=== PATIENT | male | born 1970 | race Caucasian/White ===

== ENCOUNTER 2016-08-20 14:37 | Emergency (ER) | payer SELFPAY ==
[~2016-08-20] VITALS: Ht 185.4 cm; Wt 90.7 kg
[2016-08-20 19:05] VITALS: BP 143/107
== END 2016-08-20 19:33 | disposition home or self-care (01) ==
LOC: ER 14:44
DX: K40.90 Unilateral inguinal hernia, without obstruction or gangrene, not specified as recurrent (principal); N28.89 Other specified disorders of kidney and ureter
CPT/HCPCS: 74176

== ENCOUNTER 2023-11-07 08:38 | Inpatient (IN) | payer MEDICAID ==
[~2023-11-07] VITALS: Ht 182.9 cm; Wt 104.0 kg
[2023-11-07 09:28] VITALS: PULSE 99; RESP 16; O2SAT 99
[2023-11-07 09:32] LABS: Basophils # (auto) 0 10 ^3/uL (0-0.2); Basophils % (auto) 0.2 % (0.0-2.0); Eosinophils # (auto) 0 10 ^3/uL (0-0.8); Hematocrit 46.4 % (41.0-53.0); Hemoglobin 15.9 g/dL (13.5-17.5); Lymphocytes # (auto) 0.4 10 ^3/uL (0.4-5.4); Lymphocytes % (auto) 2.9 % (10.0-50.0); Mean Corpuscular Hemoglobin 30.8 pg (28.0-32.0); Mean Corpuscular Hgb Conc. 34.3 g/dL (32.0-36.0); Mean Corpuscular Volume 89.9 fL (80.0-100.0); Monocytes # (auto) 0.5 10 ^3/uL (0-1.3); Monocytes % (auto) 3.4 % (0.0-12.0); Neutrophils # (auto) 14.2 10 ^3/uL (1.6-8.6); Neutrophils % (auto) 93.5 % (37.0-80.0); Nucleated Red Blood Cells % 0.1 %; Platelet Count (auto) 248 10^3/uL (140-450); Red Blood Cells 5.16 10^6/uL (4.5-5.90); Red Cell Distribution Width 13.6 % (11.8-14.3); White Blood Cell 15.1 10^3/uL (4.4-10.8)
[2023-11-07 09:44] LABS: Chloride 106 mmol/L (98-107); Potassium 4.1 mmol/L (3.5-5.1); Sodium 136 mmol/L (136-145)
[2023-11-07 09:45] LABS: Anion Gap 0 (5-15); Carbon Dioxide 30 mmol/L (20-30)
[2023-11-07 09:46] LABS: Calcium 10.6 mg/dL (8.7-10.4)
[2023-11-07] MEDS: SODIUM CHLORIDE 0.9% 1,000 ML IVB ONE (09:47)
[2023-11-07] MEDS: ONDANSETRON HCL 4 MG/2 ML VIAL IV ONE (09:50)
[2023-11-07 09:51] LABS: BUN/Creatinine Ratio 7.6 (10.0-20.0); Blood Urea Nitrogen 10 mg/dL (9-23); Glucose 121 mg/dL (74-106)
[2023-11-07] MEDS: KETOROLAC TROMETH 30 MG/ML 1ML VIAL IV ONE (09:51)
[2023-11-07] MEDS ORDERED: ONDANSETRON HCL 4 MG/2 ML VIAL IV PRN (11:30)
[2023-11-07] MEDS ORDERED: ACETAMINOPHEN 325 MG TAB PO PRN (11:30)
[2023-11-07] MEDS: SODIUM CHLORIDE 0.9% 1,000 ML IV SCH (11:46)
[2023-11-07] MEDS: TAMSULOSIN HYDROCHLORIDE 0.4 MG CAP PO ONE (11:47)
[2023-11-07] MEDS: cefTRIAXone 1GM/50ML D5W 50 ML IV ONE (11:47)
[2023-11-07 11:57] LABS: Urine Bacteria FEW /hpf (None Seen); Urine Blood Negative /uL (Negative); Urine Clarity Turbid (Clear); Urine Color Yellow (Yellow); Urine Mucus FEW (None Seen); Urine Protein, UAD TRACE (Negative); Urine Specific Gravity 1.025 (1.001-1.035); Urine Urobilinogen Normal (Negative); Urine WBC 55 /hpf (0 - 3); Urine pH 6.5 (5.0-9.0)
[2023-11-07] MEDS: NICOTINE 7MG/24HR TOPICAL PATCH TD ONE (12:11)
[2023-11-07] MEDS: TAMSULOSIN HYDROCHLORIDE 0.4 MG CAP PO SCH (18:38)
[2023-11-07 20:30] VITALS: PULSE 101; RESP 18; O2SAT 96
[2023-11-07 21:00] VITALS: BP 106/68; PULSE 114; PULSE 126; RESP 18; TEMP 99.7; O2SAT 93
[2023-11-08] VITALS (7 sets, daily range): BP systolic 97–110; BP diastolic 49–65; PULSE 68–108; RESP 17–19; TEMP 98–98.9; O2SAT 94–98
[2023-11-08] MEDS: MORPHINE SULFATE INJ 2 MG/ml SYRG IV PRN (04:10)
[2023-11-08 06:04] LABS: Basophils # (auto) 0.1 10 ^3/uL (0-0.2); Basophils % (auto) 0.3 % (0.0-2.0); Eosinophils # (auto) 0.1 10 ^3/uL (0-0.8); Eosinophils % (auto) 0.5 % (0.0-7.0); Hematocrit 39.9 % (41.0-53.0); Hemoglobin 13.7 g/dL (13.5-17.5); Lymphocytes # (auto) 0.8 10 ^3/uL (0.4-5.4); Mean Corpuscular Hemoglobin 30.8 pg (28.0-32.0); Mean Corpuscular Hgb Conc. 34.4 g/dL (32.0-36.0); Mean Corpuscular Volume 89.5 fL (80.0-100.0); Monocytes # (auto) 1.3 10 ^3/uL (0-1.3); Monocytes % (auto) 6.5 % (0.0-12.0); Neutrophils # (auto) 17.4 10 ^3/uL (1.6-8.6); Neutrophils % (auto) 88.7 % (37.0-80.0); Platelet Count (auto) 184 10^3/uL (140-450); Red Blood Cells 4.45 10^6/uL (4.5-5.90); Red Cell Distribution Width 13.2 % (11.8-14.3); White Blood Cell 19.7 10^3/uL (4.4-10.8)
[2023-11-08 06:27] LABS: Alanine Aminotransferase 10 U/L (7-40); Albumin 3.4 g/dL (3.2-4.8); Alkaline Phosphatase 104 U/L (46-116); Anion Gap 1 (5-15); Aspartate Aminotransferase 13 U/L (13-40); Bilirubin, Total 1.7 mg/dL (0.2-1.0); Blood Urea Nitrogen 15 mg/dL (9-23); Calcium 9.7 mg/dL (8.7-10.4); Carbon Dioxide 27 mmol/L (20-30); Chloride 106 mmol/L (98-107); Glucose 101 mg/dL (74-106); Potassium 4.4 mmol/L (3.5-5.1); Sodium 134 mmol/L (136-145); Total Protein 5.3 g/dL (5.7-8.2)
[2023-11-08 09:14] LABS: LDL Cholesterol 40 mg/dL (< 100); Triglycerides 45 mg/dL (< 150)
[2023-11-08 09:16] LABS: Cholesterol 87 mg/dL (< 200); HDL Cholesterol 33 mg/dL (40-59)
[2023-11-08] MEDS: cefTRIAXone 1GM/50ML D5W 50 ML IV SCH (10:38)
[2023-11-08] MEDS: NICOTINE 7MG/24HR TOPICAL PATCH TD SCH (10:40)
[2023-11-08] MEDS ORDERED: MORPHINE SULFATE INJ 2 MG/ml SYRG IV PRN (10:45)
[2023-11-08] MEDS: SODIUM CHLORIDE 0.9% 1,000 ML IV SCH (10:45)
[2023-11-08] MEDS: HYDROcodone-ACET 5/325MG TAB PO PRN (10:48)
[2023-11-09 01:00] VITALS: BP 110/71; PULSE 104; RESP 20; TEMP 98.2; O2SAT 94
[2023-11-09 05:00] VITALS: BP 96/57; PULSE 59; RESP 20; TEMP 97.4; O2SAT 91
[2023-11-09 08:00] VITALS: PULSE 74; O2SAT 98
[2023-11-09 09:14] LABS: Basophils # (auto) 0 10 ^3/uL (0-0.2); Basophils % (auto) 0.2 % (0.0-2.0); Eosinophils # (auto) 0 10 ^3/uL (0-0.8); Eosinophils % (auto) 0.2 % (0.0-7.0); Hemoglobin 14.2 g/dL (13.5-17.5); Lymphocytes # (auto) 0.3 10 ^3/uL (0.4-5.4); Lymphocytes % (auto) 2.5 % (10.0-50.0); Mean Corpuscular Hemoglobin 30.5 pg (28.0-32.0); Mean Corpuscular Hgb Conc. 33.9 g/dL (32.0-36.0); Monocytes # (auto) 0.6 10 ^3/uL (0-1.3); Monocytes % (auto) 5.3 % (0.0-12.0); Neutrophils # (auto) 9.9 10 ^3/uL (1.6-8.6); Neutrophils % (auto) 91.8 % (37.0-80.0); Platelet Count (auto) 120 10^3/uL (140-450); Red Blood Cells 4.67 10^6/uL (4.5-5.90); Red Cell Distribution Width 13.6 % (11.8-14.3); White Blood Cell 10.7 10^3/uL (4.4-10.8)
[2023-11-09 09:34] LABS: Alanine Aminotransferase 12 U/L (7-40); Albumin 3.4 g/dL (3.2-4.8); Alkaline Phosphatase 119 U/L (46-116); Anion Gap 1 (5-15); Aspartate Aminotransferase 12 U/L (13-40); BUN/Creatinine Ratio 9.9 (10.0-20.0); Bilirubin, Total 1.6 mg/dL (0.2-1.0); Blood Urea Nitrogen 16 mg/dL (9-23); Carbon Dioxide 26 mmol/L (20-30); Chloride 103 mmol/L (98-107); Glucose 87 mg/dL (74-106); Potassium 4.2 mmol/L (3.5-5.1); Sodium 130 mmol/L (136-145); Total Protein 5.6 g/dL (5.7-8.2)
[2023-11-09] MEDS: MEROPENEM 1GM IVPB 50 ML IV SCH (09:42)
[2023-11-09] MEDS ORDERED: CEPH500T PO (10:31)
[2023-11-09 13:00] VITALS: BP 102/68; PULSE 92; RESP 20; TEMP 98.5; O2SAT 97
== END 2023-11-09 17:50 | disposition home or self-care (01) | DRG 720 ==
LOC: ER 08:38 → EDBD 08:38 → OVERFLOW 11:30 → EAST 21:00
PROVIDERS: ADMIT Internal Medicine Geriatric Medicine; ATTEND Internal Medicine Geriatric Medicine
DX: A41.9 Sepsis, unspecified organism (principal); N17.0 Acute kidney failure with tubular necrosis; N13.6 Pyonephrosis; K40.90 Unilateral inguinal hernia, without obstruction or gangrene, not specified as recurrent; E87.1 Hypo-osmolality and hyponatremia; F17.210 Nicotine dependence, cigarettes, uncomplicated; Z87.442 Personal history of urinary calculi; Z79.899 Other long term (current) drug therapy
CPT/HCPCS: 36415; 74176; 80048; 80053; 80061; 81001; 83036; 84443; 85025; 87040; 87077; 87086; 87088; 87186; 96361; 96374; 96375; G0378; J1885; J2185; J2405

== ENCOUNTER 2024-08-16 07:10 | Day surgery (SDC) | payer MEDICAID ==
[2024-08-15 11:13] LABS: Basophils # (auto) 0.1 10 ^3/uL (0-0.2); Basophils % (auto) 1.4 % (0.0-2.0); Eosinophils # (auto) 0.2 10 ^3/uL (0-0.8); Eosinophils % (auto) 2.2 % (0.0-7.0); Hematocrit 47.7 % (41.0-53.0); Hemoglobin 16.3 g/dL (13.5-17.5); Lymphocytes # (auto) 1.8 10 ^3/uL (0.4-5.4); Lymphocytes % (auto) 20.5 % (10.0-50.0); Mean Corpuscular Hgb Conc. 34.3 g/dL (32.0-36.0); Mean Corpuscular Volume 87.5 fL (80.0-100.0); Monocytes # (auto) 0.8 10 ^3/uL (0-1.3); Monocytes % (auto) 9.7 % (0.0-12.0); Neutrophils # (auto) 5.7 10 ^3/uL (1.6-8.6); Neutrophils % (auto) 66.2 % (37.0-80.0); Nucleated Red Blood Cells % 0.1 %; Platelet Count (auto) 246 10^3/uL (140-450); Red Blood Cells 5.45 10^6/uL (4.5-5.90); Red Cell Distribution Width 14.8 % (11.8-14.3); White Blood Cell 8.6 10^3/uL (4.4-10.8)
[2024-08-15 11:23] LABS: Alanine Aminotransferase 13 U/L (7-40); Albumin 4.1 g/dL (3.2-4.8); Alkaline Phosphatase 237 U/L (46-116); Anion Gap 7 (5-15); Aspartate Aminotransferase 9 U/L (13-40); BUN/Creatinine Ratio 12.9 (10.0-20.0); Blood Urea Nitrogen 12 mg/dL (9-23); Calcium 10.3 mg/dL (8.7-10.4); Carbon Dioxide 29 mmol/L (20-31); Chloride 107 mmol/L (98-107); Glucose 102 mg/dL (74-106); INR 0.93 (0.9-1.15); Partial Thromboplastin Time 25.9 SEC (24.5-34.5); Potassium 3.8 mmol/L (3.5-5.1); Prothrombin Time 9.9 sec (9.3-11.8); Sodium 143 mmol/L (136-145); Total Protein 6.2 g/dL (5.7-8.2); Urine Bacteria FEW /hpf (None Seen); Urine Blood TRACE /uL (Negative); Urine Clarity Turbid (Clear); Urine Color Yellow (Yellow); Urine Mucus FEW (None Seen); Urine Protein, UAD Negative (Negative); Urine Specific Gravity 1.025 (1.001-1.035); Urine Squamous Epithelial Cell FEW /hpf (<5); Urine Urobilinogen Normal (Negative); Urine WBC 49 /HPF (0-3); Urine WBC Clumps PRESENT /hpf (None Seen); Urine pH 5.5 (5.0-9.0)
[2024-08-15 11:24] LABS: Bilirubin, Total 1.4 mg/dL (0.2-1.0)
[~2024-08-16] VITALS: Ht 182.9 cm; Wt 90.7 kg
[~2024-08-16 07:10] MED LIST: CEPH500T PO
[2024-08-16] MEDS ORDERED: fentaNYL CITRATE 100 MCG/2 ML VL ONE (08:13)
[2024-08-16] MEDS ORDERED: MIDAZOLAM HCL 2MG/2ML 2ml VIAL (1mg/ml) ONE (08:13)
[2024-08-16] MEDS ORDERED: PROPOFOL 10 MG/ML 20 ML IV ONE (08:14)
[2024-08-16] MEDS ORDERED: DexAMETHasone SOD PHOS 10MG/1ML VIAL INJ ONE (08:14)
[2024-08-16] MEDS: ceFAZolin 2 GM/D5W50ml 50 ML IV ONE (08:40)
[2024-08-16] MEDS ORDERED: HYDROmorphone HCL 2 MG/ML VL/or syr ONE (09:03)
[2024-08-16] MEDS ORDERED: METOCLOPRAMIDE HCL 5MG/ml INJ 2ml VIAL ONE (09:03)
[2024-08-16] MEDS: BUPIVACAINE HCL 0.25% P/F 10 ML VIAL ONE (09:12)
[2024-08-16] MEDS: LIDOCAINE W/ EPINEPHRINE 1% 20ML VIAL ONE (09:12)
[2024-08-16] MEDS ORDERED: SUCCINYLCHOLINE CHLORIDE 20 MG/ML 10ML VIAL IV ONE (09:43)
[2024-08-16] MEDS ORDERED: hydrALAZINE HCL 20 MG/ML VL IV PRN (10:00)
[2024-08-16] MEDS ORDERED: ePHEDrine SULFATE 50 MG/ML AMP IV PRN (10:00)
[2024-08-16] MEDS ORDERED: HYDROmorphone HCL 2 MG/ML VL/or syr IV PRN (10:00)
[2024-08-16] MEDS ORDERED: MORPHINE SULFATE 4 MG/ML SYR/VIAL IV PRN (10:00)
[2024-08-16] MEDS ORDERED: ONDANSETRON HCL 4 MG/2 ML VIAL IV ONE (10:00)
[2024-08-16] MEDS ORDERED: MIDAZOLAM HCL 2MG/2ML 2ml VIAL (1mg/ml) IV PRN (10:00)
[2024-08-16 10:25] VITALS: PULSE 80; RESP 11; O2SAT 93
--- NOTE | 2024-08-16 10:36 | DVHOP ---
DATE OF SURGERY: 08/16/2024 PREOPERATIVE DIAGNOSIS: Giant right inguinal scrotal hernia. POSTOPERATIVE DIAGNOSIS: Giant right inguinal scrotal hernia. SURGEON: Sammy Multani MD. DOCUMENTATION DESIGNER: Roberto Miguel. ANESTHESIA: General endotracheal, Dr. Garsia. PROCEDURE: Repair of giant right inguinal scrotal hernia. DESCRIPTION OF PROCEDURE: The patient was informed preoperatively that his right testicle may be compromised by the hernia itself or by the repair of the hernia. The patient fully understood the potential complications of testicular ischemia and torsion after repair of such an enormously large herniation, which the patient has had for several years. Under general anesthesia, the patient's right groin incision was made and deepened with electrocautery. The sac of the indirect hernia was identified and grasped with a Vy forceps and opened and digitally explored. It contained several feet of small bowel. The small bowel was returned into the peritoneal cavity and the widely dilated hernia neck was closed using 2-0 Prolene suture and excess peritoneum was then excised and submitted for histopathologic examination. The floor of the hernia was markedly distorted. There were numerous layers overlapping each other. It was difficult to separate from each other. Closure was then accomplished utilizing nonabsorbable sutures from the conjoint tendon and the reflecting portion of Poupart's fascia. The approximation was such as to accommodate a forceps and the cord structures so as to minimize the likelihood for constriction of the testicular vessels. The wound was then irrigated. Hemostasis was accomplished and the testicle was returned into its normal anatomical position. The closure was accomplished utilizing Monocryl sutures. No drain was used due to the compression of the scrotal skin, which was quite adequate. The patient remained stable throughout the procedure and left the operating room following an accurate needle and sponge count. MD PAIGE [place]/ROBERT TID: [id number] RECEIPT: [id number]
[2024-08-16 11:40] VITALS: BP 126/88; PULSE 90; RESP 16; O2SAT 92
== END 2024-08-16 11:45 | disposition home or self-care (01) ==
LOC: SUR 07:10
PROVIDERS: ATTEND Surgery
DX: K40.90 Unilateral inguinal hernia, without obstruction or gangrene, not specified as recurrent (principal); I10 Essential (primary) hypertension; J44.9 Chronic obstructive pulmonary disease, unspecified; F17.200 Nicotine dependence, unspecified, uncomplicated; Z79.899 Other long term (current) drug therapy; Z98.890 Other specified postprocedural states
CPT/HCPCS: 36415; 49505; 80053; 81001; 85025; 85610; 85730; 88302; J0330; J0690; J1100; J1171; J2250; J2704; J2765; J3010; J3490

== ENCOUNTER 2024-11-15 12:21 | Inpatient (IN) | payer MEDICAID ==
[2024-11-15] VITALS (7 sets, daily range): BP systolic 100; BP diastolic 65–68; PULSE 75–119; RESP 16–21; TEMP 98.1–99.2; O2SAT 90–96
[~2024-11-15] VITALS: Ht 185.4 cm; Wt 93.1 kg
[2024-11-15 14:27] LABS: Hematocrit 51.3 % (41.0-53.0); Hemoglobin 17.8 g/dL (13.5-17.5); Mean Corpuscular Hemoglobin 30.1 pg (28.0-32.0); Mean Corpuscular Volume 87.1 fL (80.0-100.0); Nucleated Red Blood Cells % 0.2 %
[2024-11-15 14:36] LABS: Carbon Dioxide 20 mmol/L (20-31)
[2024-11-15 14:41] LABS: Anion Gap 12 (5-15)
[2024-11-15 14:42] LABS: BUN/Creatinine Ratio 12.2 (10.0-20.0); Blood Urea Nitrogen 23 mg/dL (9-23); Calcium 10.5 mg/dL (8.7-10.4); Chloride 96 mmol/L (98-107); Glucose 87 mg/dL (74-106); Potassium 5.1 mmol/L (3.5-5.1); Sodium 128 mmol/L (136-145)
--- NOTE | 2024-11-15 14:55 | ED.PDOC ---
History of Present Illness HPI Comments 48 y/o M is BIBA for 4x day history of nonradiating, right sided abdominal pain, with associated nausea and vomiting. Patient denies on having any bloody or bilious vomitus, diarrhea, urinary symptoms, fever, chills, or further associated symptoms. Significant history of LOBO, kidney stones, sepsis secondary to UTI, and right inguinal hernia repair in August 16, 2024. Chief Complaint: Abdominal Pain Time Seen by MD: 13:45 Primary Care Provider: UNKNOWN Reviewed Notes: Nurses Notes, Medications, Allergies Allergies: Coded Allergies: NO KNOWN ALLERGIES (Unverified , 08/20/16) Home Meds Active Scripts Cephalexin Monohydrate (Cephalexin) 500 Mg Tab, 500 MG PO TID for 7 Days, #21 TAB Prov:CAR ZHAO RESIDENT 11/09/23 Information Source: Patient, Emergency Med Personnel Mode of Arrival: EMS Severity: Moderate Timing: Days Duration: Since onset Prehospital treatment: None Past Medical History PAST MEDICAL HISTORY: Kidney Stones, UTI'S Past Medical History (Other): Sepsis LOBO Surgical History: Hernia Repair (right inguinal) Social History Smoker: Cigarettes Alcohol: Occasionally Drugs: Marijuana Lives In: Home All Other Systems: Reviewed and Negative (Comprehensive systems review obtained and negative except for what is stated in the HPI.) Physical Exam General Appearance: Moderate Distress HEENT: Normal ENT Inspection, Pharynx Normal, TMs Normal Neck: Full Range of Motion, Non-Tender, Normal, Normal Inspection Respiratory: Chest Non-Tender, Lungs Clear, No Accessory Muscle Use, No Respiratory Distress, Normal Breath Sounds Cardiovascular: No Edema, No JVD, No Murmur, No Gallop, Normal Peripheral Pulses, Regular Rate/Rhythm Breast Exam: Deferred Gastrointestinal: Diffuse Genitalia: Deferred Pelvic: Deferred Rectal: Deferred Extremities: No calf tenderness, Normal capillary refill, Normal inspection, Normal range of motion, Non-tender, No pedal edema Musculoskeletal : Apperance: Normal Neurologic: Alert, forensic artist II-XII nml as Tested, No Motor Deficits, Normal Affect, Normal Mood, No Sensory Deficits Cerebellar Function: NOT DONE Reflexes: NOT DONE Skin: Dry, Normal Color, Warm Peripheral Pulses: 3+ Radial (R), 3+ Radial (L) Lymphatic: No Adenopathy Was a procedure done? Was a procedure done?: No EKG EKG : Pulse Rate (adult): 122 [place]: Normal Cardiac Rhythm: NSR Block: None Hypertrophy: None ST: Normal Differential Dx Considerations may include: gastritis, gastroenteritis, GERD, PUD, cholelithiasis, cholecystitis, nephrolithiasis, pyelonephritis, cystitis, musculoskeletal pain, among others X-Ray, Labs, Meds, VS Vital Signs Date Time Temp Pulse Resp B/P (MAP) Pulse Ox O2 Delivery O2 Flow Rate FiO2 11/15/24 14:55 122 11/15/24 12:33 97.5 120 25 133/75 96 97.5 11/15/24 12:27 122 Lab Test 11/15/24 13:58 Range/Units White Blood Count 16.3 H 4.4-10.8 10^3/uL Red Blood Count 5.89 4.5-5.90 10^6/uL Hemoglobin 17.8 H 13.5-17.5 g/dL Hematocrit 51.3 41.0-53.0 % Mean Corpuscular Volume 87.1 80.0-100.0 fL Mean Corpuscular Hemoglobin 30.1 28.0-32.0 pg Mean Corpuscular Hemoglobin Concent 34.6 32.0-36.0 g/dL Red Cell Distribution Width 14.2 11.8-14.3 % Platelet Count 199 140-450 10^3/uL Mean Platelet Volume 7.8 6.9-10.8 fL Neutrophils (%) (Auto) 90.4 H 37.0-80.0 % Lymphocytes (%) (Auto) 3.4 L 10.0-50.0 % Monocytes (%) (Auto) 5.9 0.0-12.0 % Eosinophils (%) (Auto) 0.1 0.0-7.0 % Basophils (%) (Auto) 0.2 0.0-2.0 % Neutrophils # (Auto) 14.7 H 1.6-8.6 10 ^3/uL Lymphocytes # (Auto) 0.6 0.4-5.4 10 ^3/uL Monocytes # (Auto) 1.0 0-1.3 10 ^3/uL Eosinophils # (Auto) 0 0-0.8 10 ^3/uL Basophils # (Auto) 0 0-0.2 10 ^3/uL Nucleated Red Blood Cells 0.2 % Sodium Level 128 L 136-145 mmol/L Potassium Level 5.1 3.5-5.1 mmol/L Chloride Level 96 L 98-107 mmol/L Carbon Dioxide Level 20 20-31 mmol/L Anion Gap 12 5-15 Blood Urea Nitrogen 23 9-23 mg/dL Creatinine 1.89 H 0.700-1.30 mg/dL Glomerular Filtration Rate Calc 41 >90 mL/min BUN/Creatinine Ratio 12.2 10.0-20.0 Serum Glucose 87 74-106 mg/dL Calcium Level 10.5 H 8.7-10.4 mg/dL Troponin I High Sensitivity < 3 L </=54 ng/L Patient alert. Complaining of abdominal pain. Vitals stable. Answering questions. Sodium is low. Blood sugar within normal limits. Cardiac marker within normal limits. Establish intravenous access. Was given fluids. Was given Toradol. WBC elevated. Was given Zosyn. Was given Flomax. CT of the abdomen reviewed does show kidney stone along with possible colitis. Possible ATN. Explained to the patient. Continue monitoring. Time of 1ST Reevaluation: 14:25 Reevaluation 1ST: Unchanged Patient Education/Counseling: Diagnosis, Treatment, Need For Follow Up Family Education/Counseling: No Family Present SEPSIS Sepsis Screen Date sepsis recognized/suspect: Nov 15, 2024 Time Sepsis recognized/suspect: 1234 Recent Procedure: No On Antibiotic Therapy: No Respiratory Rate >20: No Heart Rate >90: Yes Temp<36 C (96.8 F) or >38.3 C: No SBP <90 or MAP <65 mmHG: No New Acute Mental Status Change: No Is the patient on CPAP, BIPAP,: No Physician Orders Electrocardigram (11/15/24 13:04) Urinalysis (11/15/24 13:49) Sodium Chloride 0.9% (11/15/24 14:00) Ct Ab Pel Wo Con-No Oral Or Iv (11/15/24 13:49) Ketorolac Injection (Toradol Injection) (11/15/24 15:45) Zosyn Extended Infusion (11/15/24 15:45) Vital Signs Date Time Temp Pulse Resp B/P (MAP) Pulse Ox O2 Delivery O2 Flow Rate FiO2 11/15/24 14:55 122 11/15/24 12:33 97.5 120 25 133/75 96 97.5 11/15/24 12:27 122 Laboratory Tests Test 11/15/24 13:58 White Blood Count 16.3 10^3/uL (4.4-10.8) H Departure 1 Departure Time of Disposition: 15:41 Impression: Primary Impression: Kidney stone Additional Impressions: Non-specific colitis Sepsis, unspecified organism Qualified Codes: A41.9 - Sepsis, unspecified organism Disposition: ADMITTED INPATIENT Admit to: Med Surg Condition: Guarded Critical Care Note Critical Care Time?: Yes (90 min-critical care time only) Stability Stability form required: No Heart Score Heart Score: Heart Score Response (Comments) Value History N/A 0 EKG N/A 0 Age N/A 0 Risk Factors N/A 0 Troponin N/A 0 Total 0 I personally scribed for JJ RANDALL MD ([email or web address]) on 11/15/24 at 14:55. Electronically submitted by Adam Castañeda [email or web address]). JJ RANDALL MD Nov 15, 2024 14:55
--- NOTE | 2024-11-15 15:21 | DVH ---
CLINICAL INFORMATION: 54 years old, Male; colitis. Abdominal pain. TECHNIQUE: Axial CT images of the abdomen and pelvis were obtained without IV contrast. Coronal and s agittal reformatted images were obtained, reviewed, and stored. Evaluation of the parenchymal organs is limited without IV contrast. Evaluation of the bowel and mesentery is limited without oral contras t. All CT scans at this medical facility are performed using dose modulation techniques as appropriat e to a performed exam including the following: Automated exposure control was utilized; adjustment of the MA and/or KV according to patient size; and use of iterative reconstruction technique. CTDIvol = 9.62 mGy DLP = 611.26 mGy-cm COMPARISON: CT CT AB PEL WO CON-NO ORAL OR IV on DOS: 11/07/23 FINDINGS: Lung bases: Atelectasis in the lung bases, right greater than left. Liver: Grossly unremarkable in its noncontrast enhanced appearance. No abnormal density or focal lesi on identified. Biliary: No calcified gallstones or biliary ductal dilatation. Spleen: Unremarkable. Pancreas: Grossly unremarkable in its noncontrast enhanced appearance. Adrenal glands: Unremarkable. No mass. Kidneys: Moderate right hydronephrosis and hydroureter with obstructing calculus in the distal right ureter measuring up to 7 mm, approximately 1.8 cm proximal to the insertion. There is moderate perine phric and periureteral stranding. Additional nonobstructing calculi in both kidneys, with the largest measuring up to 1.3 cm in the upper pole of the right kidney. Aorta/Vascular: Scattered atherosclerotic calcification. No abdominal aortic aneurysm. Retroperitoneum: No mass or lymphadenopathy. Bowel/mesentery: Nonspecific mildly distended fluid-filled small bowel loops. No small bowel obstruct ion. Cecum and appendix are abnormally positioned in the left lower abdomen, may be due to congenital malrotation, with small bowel predominantly in the right hemiabdomen and large bowel predominantly i n the left hemiabdomen. Appendix is visualized and appears unremarkable. Pelvic organs: Grossly unremarkable. Bladder: Underdistended bladder, suboptimally evaluated. Moderate circumferential thickening of the b ladder wall. Abdominal wall: Small to moderate right inguinal hernia containing fat with moderate stranding. Bones: No acute fracture or suspicious intraosseous lesion. IMPRESSION: 1. Moderate right hydronephrosis and hydroureter with obstructing 7 mm calculus of the distal right u reter. 2. Additional nonobstructing bilateral renal calculi. 3. Nonspecific nondilated fluid-filled small bowel loops. Findings may be seen with ileus or enteriti s in the appropriate clinical setting. No small bowel obstruction. 4. 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 5. Underdistended bladder, suboptimally evaluated. Moderate circumferential thickening of the bladder wall is nonspecific. Correlate clinically to exclude cystitis. 6. Small to moderate right inguinal hernia containing fat with moderate adjacent inflammatory strandi ng. Correlate with clinical findings. 7. Additional findings as described above.
[2024-11-15] MEDS: FUROSEMIDE 40 MG/4 ML VIAL IV ONE (17:00)
[2024-11-15] MEDS: PIPERACILLIN-TAZOB 3.375GM 100 ML IV ONE (17:00)
[2024-11-15] MEDS: KETOROLAC TROMETH 30 MG/ML 1ML VIAL IV ONE (17:01)
[2024-11-15] MEDS: TAMSULOSIN HYDROCHLORIDE 0.4 MG CAP PO ONE (17:01)
[2024-11-15] MEDS: SODIUM CHLORIDE 0.9% 1,000 ML IV ONE ×3 (17:02→23:30)
[2024-11-15] MEDS ORDERED: ACETAMINOPHEN 325 MG TAB PO PRN (19:45)
[2024-11-15 21:06] LABS: Urine Amorphous Crystal FEW /hpf (None Seen); Urine Protein, UAD 1+ (Negative)
[2024-11-15] MEDS ORDERED: ALBUTEROL SULF 2.5 MG/0.5ML(0.5%) NEB SOLN NEB PRN (21:30)
--- NOTE | 2024-11-15 21:32 | DVHHP2 ---
History of Present Illness Reason for Visit: Abdominal pain History of Present Illness [age] year old male presents for evaluation of abdominal pain. Patient reports two day history of right-sided abdominal pain that is nonradiating with associated nausea and vomiting. No fever or chills. Patient does seem to be lethargic, diaphoretic and became hypoxic. Currently on facemask. Past Medical History Kidney stones, UTI Past Surgical History Hernia repair Family History Noncontributory Smoke: <1 pack per day ALCOHOL: occassional Drugs: Marijuana Lives: with Family Review of Systems Review of Systems Review of systems are currently negative otherwise addressed in HPI. Allergies: Coded Allergies: NO KNOWN ALLERGIES (Unverified , 08/20/16) Medications Current Medications Medications Dose Ordered Sig/Meliza Route Start Time Stop Time Status Last Admin Dose Admin Metronidazole 100 ml @ 100 mls/hr Q8HR IV 11/15/24 22:00 Acetaminophen/ Hydrocodone Bitart 1 tab Q4HP PRN PO 11/15/24 19:45 Ondansetron HCl 4 mg Q4HP PRN IV 11/15/24 19:45 Acetaminophen 650 mg Q6HP PRN PO 11/15/24 19:45 Morphine Sulfate 2 mg Q6HPRN PRN IV 11/15/24 19:45 Albuterol 2.5 mg Q6HPRN PRN NEB 11/15/24 21:30 UNV Cefepime HCl 50 ml @ 12.5 mls/hr Q12HR IV 11/15/24 22:00 UNV Exam Vital Signs Vital Signs Date Time Temp Pulse Resp B/P (MAP) Pulse Ox O2 Delivery O2 Flow Rate FiO2 11/15/24 20:00 107 11/15/24 19:35 16 95 Simple Mask* 6 50 11/15/24 19:30 98.1 100/65 (77) 98.1 Exam Gen: 54-year-old male in mild distress Skin: Warm, dry, normal color and texture, no rash. HEENT: Normocephalic atraumatic, mucous membranes moist and pink. Neck: Cervical and supraclavicular nodes normal without enlargement, trachea is midline, thyroid gland is normal without masses. Pulmonary: Clear to auscultation and percussion bilaterally. Cardiac: Tachycardia Abdomen: Soft, nontender, nondistended, bowel sounds present all 4 quadrants, no guarding, no rigidity, no organomegaly. Extremities: No cyanosis, clubbing, no edema Neuro: Lethargic Labs/Xrays ORDERING PHYSICIAN: JJ RANDALL MD PROCEDURE(s): ABPL - CT AB PEL WO CON-NO ORAL OR IV REASON: colitis ORDER NUMBER(s): [id number], ACCESSION NUMBER(s): [id number] CLINICAL INFORMATION: 54 years old, Male; colitis. Abdominal pain. TECHNIQUE: Axial CT images of the abdomen and pelvis were obtained without IV contrast. Coronal and sagittal reformatted images were obtained, reviewed, and stored. Evaluation of the parenchymal organs is limited without IV contrast. Evaluation of the bowel and mesentery is limited without oral contrast. All CT scans at this medical facility are performed using dose modulation techniques as appropriate to a performed exam including the following: Automated exposure control was utilized; adjustment of the MA and/or KV according to patient size; and use of iterative reconstruction technique. CTDIvol = 9.62 mGy DLP = 611.26 mGy-cm COMPARISON: CT CT AB PEL WO CON-NO ORAL OR IV on DOS: 11/07/23 FINDINGS: Lung bases: Atelectasis in the lung bases, right greater than left. Liver: Grossly unremarkable in its noncontrast enhanced appearance. No abnormal density or focal lesion identified. Biliary: No calcified gallstones or biliary ductal dilatation. Spleen: Unremarkable. Pancreas: Grossly unremarkable in its noncontrast enhanced appearance. Adrenal glands: Unremarkable. No mass. Kidneys: Moderate right hydronephrosis and hydroureter with obstructing calculus in the distal right ureter measuring up to 7 mm, approximately 1.8 cm proximal to the insertion. There is moderate perinephric and periureteral stranding. Additional nonobstructing calculi in both kidneys, with the largest measuring up to 1.3 cm in the upper pole of the right kidney. Aorta/Vascular: Scattered atherosclerotic calcification. No abdominal aortic aneurysm. Retroperitoneum: No mass or lymphadenopathy. Bowel/mesentery: Nonspecific mildly distended fluid-filled small bowel loops. No small bowel obstruction. Cecum and appendix are abnormally positioned in the left lower abdomen, may be due to congenital malrotation, with small bowel predominantly in the right hemiabdomen and large bowel predominantly in the left hemiabdomen. Appendix is visualized and appears unremarkable. Pelvic organs: Grossly unremarkable. Bladder: Underdistended bladder, suboptimally evaluated. Moderate ci rcumferential thickening of the bladder wall. Abdominal wall: Small to moderate right inguinal hernia containing fat with mode rate stranding. Bones: No acute fracture or suspicious intraosseous lesion. IMPRESSION: 1. Moderate right hydronephrosis and hydroureter with obstructing 7 mm calculus of the distal right ureter. 2. Additional nonobstructing bilateral renal calculi. 3. Nonspecific nondilated fluid-filled small bowel loops. Findings may be seen with ileus or enteritis in the appropriate clinical setting. No small bowel obstruction. 4. 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 5. Underdistended bladder, suboptimally evaluated. Moderate circumferential thickening of the bladder wall is nonspecific. Correlate clinically to exclude cystitis. 6. Small to moderate right inguinal hernia containing fat with moderate adjacent inflammatory stranding. Correlate with clinical findings. 7. Additional findings as described above. Labs Test 11/15/24 19:48 11/15/24 17:05 11/15/24 13:58 Range/Units Urine Color Yellow Yellow Urine Clarity Turbid H Clear Urine pH 5.0 5.0-9.0 Urine Specific [place] 1.014 1.001-1.035 Urine Protein 1+ H Negative Urine Ketones 1+ H Negative Urine Blood 1+ H Negative /uL Urine Nitrite Negative Negative Urine Bilirubin Negative Negative Urine Urobilinogen Normal Negative mg/dL Urine Leukocyte Esterase Trace Negative /uL Urine RBC 1 0 - 3 /hpf Urine Microscopic WBC 11 H 0-3 /HPF Urine Squamous Epithelial Cells Few <5 /hpf Urine Amorphous Crystals Few None Seen /hpf Urine Bacteria Few H None Seen /hpf Urine Glucose Normal Normal mg/dL Lactic Acid Level 2.0 0.4-2.0 mmol/L White Blood Count 16.3 H 4.4-10.8 10^3/uL Red Blood Count 5.89 4.5-5.90 10^6/uL Hemoglobin 17.8 H 13.5-17.5 g/dL Hematocrit 51.3 41.0-53.0 % Mean Corpuscular Volume 87.1 80.0-100.0 fL Mean Corpuscular Hemoglobin 30.1 28.0-32.0 pg Mean Corpuscular Hemoglobin Concent 34.6 32.0-36.0 g/dL Red Cell Distribution Width 14.2 11.8-14.3 % Platelet Count 199 140-450 10^3/uL Mean Platelet Volume 7.8 6.9-10.8 fL Neutrophils (%) (Auto) 90.4 H 37.0-80.0 % Lymphocytes (%) (Auto) 3.4 L 10.0-50.0 % Monocytes (%) (Auto) 5.9 0.0-12.0 % Eosinophils (%) (Auto) 0.1 0.0-7.0 % Basophils (%) (Auto) 0.2 0.0-2.0 % Neutrophils # (Auto) 14.7 H 1.6-8.6 10 ^3/uL Lymphocytes # (Auto) 0.6 0.4-5.4 10 ^3/uL Monocytes # (Auto) 1.0 0-1.3 10 ^3/uL Eosinophils # (Auto) 0 0-0.8 10 ^3/uL Basophils # (Auto) 0 0-0.2 10 ^3/uL Nucleated Red Blood Cells 0.2 % Sodium Level 128 L 136-145 mmol/L Potassium Level 5.1 3.5-5.1 mmol/L Chloride Level 96 L 98-107 mmol/L Carbon Dioxide Level 20 20-31 mmol/L Anion Gap 12 5-15 Blood Urea Nitrogen 23 9-23 mg/dL Creatinine 1.89 H 0.700-1.30 mg/dL Glomerular Filtration Rate Calc 41 >90 mL/min BUN/Creatinine Ratio 12.2 10.0-20.0 Serum Glucose 87 74-106 mg/dL Calcium Level 10.5 H 8.7-10.4 mg/dL Troponin I High Sensitivity < 3 L </=54 ng/L SEPSIS Sepsis Screen Date sepsis recognized/suspect: Nov 15, 2024 Time Sepsis recognized/suspect: 1934 Recent Procedure: No On Antibiotic Therapy: Yes Respiratory Rate >20: No Heart Rate >90: Yes Temp<36 C (96.8 F) or >38.3 C: No SBP <90 or MAP <65 mmHG: No New Acute Mental Status Change: No Is the patient on CPAP, BIPAP,: No Physician Orders Ct Ab Pel Wo Con-No Oral Or Iv (8/27/25 13:49) Blood Culture (11/15/24 15:42) Metronidazole 500mg/100ml (Flagyl 500mg/ (11/15/24 22:00) Clear Liq Diet (11/16/24 Breakfast) Stool Bacterial Culture (11/15/24 19:43) * Urology Consult (11/15/24 19:43) Basic Metabolic Panel (11/16/24 04:00) Admit (11/15/24 19:43) Hydrocodone-Acet 5/325mg Tab ([place] 5/32 (11/15/24 19:45) Ondansetron Hcl (Zofran) (11/15/24 19:45) Complete Blood Count (11/16/24 04:00) Condition: Stable (11/15/24 19:43) Acetaminophen Tablet (Tylenol Tablet) (11/15/24 19:45) Bedrest With Bathroom Privileg (11/15/24 19:43) Morphine Sulfate Injection (11/15/24 19:45) Complete Blood Count (11/15/24 21:23) Basic Metabolic Panel (11/15/24 21:23) Lactic Acid W/ Reflex Order (11/15/24 21:23) Chest Xray 1 View (11/15/24 21:23) Albuterol Medneb (Ventolin Medneb) (11/15/24 21:30) D-Dimer (11/15/24 21:23) Cefepime 1 Gm (11/15/24 22:00) Transfer Orders (11/15/24 21:26) Vital Signs Date Time Temp Pulse Resp B/P (MAP) Pulse Ox O2 Delivery O2 Flow Rate FiO2 11/15/24 20:00 107 11/15/24 19:35 119 16 95 Simple Mask* 6 50 11/15/24 19:30 98.1 119 16 100/65 (77) 94 98.1 11/15/24 18:07 98.1 117 21 111/74 (86) 90 98.1 11/15/24 18:07 117 21 90 Nasal Cannula* 4 36 11/15/24 17:00 135/87 11/15/24 16:56 139 20 92 Nasal Cannula 2.0 11/15/24 16:56 98.1 139 20 135/87 (103) 92 98.1 11/15/24 14:55 122 Laboratory Tests Test 11/15/24 13:58 11/15/24 17:05 White Blood Count 16.3 10^3/uL (4.4-10.8) H Lactic Acid Level 2.0 mmol/L (0.4-2.0) Medications Medications Dose Ordered Sig/Meliza Route Start Time Stop Time Status Last Admin Dose Admin Furosemide 40 mg ONCE ONCE IV 11/15/24 15:45 11/15/24 15:46 DC 11/15/24 17:00 40 MG Ketorolac Tromethamine 30 mg ONCE ONCE IV 11/15/24 15:45 11/15/24 15:46 DC 11/15/24 17:01 30 MG Metronidazole 100 ml @ 100 mls/hr ONCE ONCE IV 11/15/24 15:45 11/15/24 16:44 DC 11/15/24 17:01 100 MLS/HR Piperacillin Sod/ Tazobactam Sod 100 ml @ 100 mls/hr ONCE ONCE IV 11/15/24 15:45 11/15/24 16:44 DC 11/15/24 17:00 100 MLS/HR Sodium Chloride 1,000 ml @ 150 mls/hr Q6H40M ONCE IV 11/15/24 14:00 11/15/24 20:39 DC 11/15/24 18:10 150 MLS/HR Sodium Chloride 1,000 ml @ 1,000 mls/hr Q1H ONCE IV 11/15/24 14:00 11/15/24 14:59 DC 11/15/24 17:02 1,000 MLS/HR Tamsulosin HCl 0.4 mg ONCE ONCE PO 11/15/24 15:45 11/15/24 15:46 DC 11/15/24 17:01 0.4 MG Assessment/Plan Assessment/Plan Assessment Obstructive uropathy Right hydronephrosis Questionable enteritis Acute abdominal pain Early sepsis Leukocytosis Acute kidney injury Plan Admit the patient to telemetry to the hospitalist Cefepime/Flagyl Clear liquid diet Maintenance IV fluids Urology consultation Continue treatment per orders. Plan discussed with: Patient My Orders Orders - EL MALONE AGACNP Procedure Category Date Status Time Metronidazole PHA 11/15/24 In Process 500mg/100ml (Flagyl 22:00 Clear Liq Diet DIET 8/28/25 Transmitted Breakfast Stool Bacterial JAN 11/15/24 Logged Culture 19:43 * Urology Consult CONS 11/15/24 Transmitted 19:43 Basic Metabolic Panel LAB 11/16/24 Verified 04:00 Admit ADMIT 11/15/24 Transmitted 19:43 Hydrocodone-Acet PHA 11/15/24 In Process 5/325mg Tab ([place] 19:45 Ondansetron Hcl PHA 11/15/24 In Process (Zofran) 19:45 Complete Blood Count LAB 11/16/24 Verified 04:00 Condition: Stable VICTOR MANUEL 11/15/24 In Process 19:43 Acetaminophen Tablet PHA 11/15/24 In Process (Tylenol Tablet) 19:45 Bedrest With Bathroom VICTOR MANUEL 11/15/24 In Process Privileg 19:43 Morphine Sulfate PHA 11/15/24 In Process Injection 19:45 Complete Blood Count LAB 11/15/24 Transmitted 21:23 Basic Metabolic Panel LAB 11/15/24 Transmitted 21:23 Lactic Acid W/ Reflex LAB 11/15/24 Transmitted Order 21:23 Chest Xray 1 View XY 11/15/24 Logged 21:23 Albuterol Medneb PHA 11/15/24 Logged (Ventolin Medneb) 21:30 D-Dimer LAB 11/15/24 Transmitted 21:23 Cefepime 1 Gm PHA 11/15/24 Transmitted 22:00 Transfer Orders XFER 11/15/24 Transmitted 21:26 Date of Service: Nov 15, 2024 Billing Provider: EL MALONE Common Visit Codes: [id number] INP/OBS CARE (HIGH) EL MALONE Nov 15, 2024 21:32
[2024-11-15 21:51] LABS: Hematocrit 49.3 % (41.0-53.0); Hemoglobin 17.4 g/dL (13.5-17.5); Mean Corpuscular Hemoglobin 30.4 pg (28.0-32.0); Mean Corpuscular Volume 86.3 fL (80.0-100.0); Nucleated Red Blood Cells % 0.1 %
[2024-11-15 21:58] LABS: Amphetamine Screen, Urine Pos (NEGATIVE); Barbiturate Scree,Urine Neg (NEGATIVE); Benzodiazephine Screen, Urine Neg (NEGATIVE); Cannabinoid Screen, Urine Neg (NEGATIVE); Cocaine Screen, Urine Neg (NEGATIVE); Opiate Scree,Urine Neg (NEGATIVE); Phencyclidine Screen, Urine Neg (NEGATIVE)
[2024-11-15] MEDS: CEFEPIME 1GM/50ML 50 ML IV SCH (22:00)
[2024-11-15 22:08] LABS: Alanine Aminotransferase 11 U/L (7-40); Albumin 4.5 g/dL (3.2-4.8); Anion Gap 10 (5-15); BUN/Creatinine Ratio 8.4 (10.0-20.0); Blood Urea Nitrogen 19 mg/dL (9-23); Carbon Dioxide 24 mmol/L (20-31); Glucose 100 mg/dL (74-106); Potassium 5.3 mmol/L (3.5-5.1); Sodium 131 mmol/L (136-145); Total Protein 7.1 g/dL (5.7-8.2)
[2024-11-15 22:09] LABS: Alkaline Phosphatase 151 U/L (46-116); Calcium 10.5 mg/dL (8.7-10.4); Chloride 97 mmol/L (98-107)
[2024-11-15 22:11] LABS: Bilirubin, Total 3.2 mg/dL (0.2-1.0)
--- NOTE | 2024-11-15 22:21 | DVH ---
CHEST RADIOGRAPH Indication: SOB Technique: 1 view Comparison: Same day CT abdomen/pelvis FINDINGS: Lines and Tubes: None Lungs/Pleura: Elevated right hemidiaphragm with [id number]-left airspace opacities consistent with atelectasis. No evident pleural effusion or pneumothorax. Cardiomediastinum: Partially obscured by the right hemidiaphragm, not obviously enlarged. Other: No acute osseous abnormality. IMPRESSION: 1. Bibasilar airspace opacities consistent with atelectasis, morphology better assessed on same-day c omparison CT.
[2024-11-16] VITALS (13 sets, daily range): BP systolic 100–133; BP diastolic 68–89; PULSE 17–121; RESP 18–24; TEMP 97.7–99.3; O2SAT 91–94
[2024-11-16] MEDS: CALCIUM CARB 500 MG CHEW TAB PO ONE ×2 (00:45→17:36)
[2024-11-16] MEDS: ONDANSETRON HCL 4 MG/2 ML VIAL IV PRN (01:42)
[2024-11-16 06:08] LABS: Urine Amorphous Crystal FEW /hpf (None Seen); Urine Protein, UAD 1+ (Negative)
[2024-11-16 07:35] LABS: Hematocrit 48.9 % (41.0-53.0); Hemoglobin 17.1 g/dL (13.5-17.5); Mean Corpuscular Hemoglobin 30.2 pg (28.0-32.0); Mean Corpuscular Volume 86.4 fL (80.0-100.0); Nucleated Red Blood Cells % 0.1 %; Potassium 4.2 mmol/L (3.5-5.1)
[2024-11-16 07:36] LABS: Anion Gap 7 (5-15); Carbon Dioxide 27 mmol/L (20-31)
[2024-11-16 07:39] LABS: Calcium 10.5 mg/dL (8.7-10.4); Chloride 96 mmol/L (98-107); Sodium 130 mmol/L (136-145)
[2024-11-16 07:41] LABS: BUN/Creatinine Ratio 14.0 (10.0-20.0)
[2024-11-16 07:42] LABS: Blood Urea Nitrogen 30 mg/dL (9-23); Glucose 120 mg/dL (74-106)
--- NOTE | 2024-11-16 08:34 | DVH ---
CLINICAL INFORMATION: 54 years old, Male; PULMONARY EMBOLISM. TECHNIQUE: 5 mCi of Xenon-133 gas was used for the ventilation portion of the exam. Posterior ventil ation imaging was obtained. 5.5 mCi of technetium 99m MAA was used for the perfusion portion of the e xam. Imaging was obtained in multiple planes of projection. COMPARISON: Chest radiograph dated 11/15/2024. FINDINGS: Perfusion imaging shows no mismatched segmental or subsegmental segmental defects. Ventilation imaging shows no defects. There is normal washout. IMPRESSION: Normal exam. No evidence of pulmonary embolism.
[2024-11-16] MEDS: MORPHINE SULFATE INJ 2 MG/ml SYRG IV PRN (10:09)
--- NOTE | 2024-11-16 10:54 | ECG ---
[facility] Test Date: 2024-11-15 Test Time: 12:27:53 Pat Name: ROBERT TOBAR Department: ED Room: [facility]1T A Gender: M Skein Bander: vani : 1970 Requested By: JJ RANDALL Order Number: [id number] Reading MD: Carlos De Oliveira Measurements Intervals [place] Rate: 122 P: 55 VA: 135 QRS: 111 QRSD: 101 T: 6 QT: 305 QTc: 435 Interpretive Statements Sinus tachycardia Right axis deviation Minimal ST depression, inferior leads Electronically Signed On 11-16-2024 13:11:45 PDT by Carlos De Oliveira Please click the below link to view image of tracing.
--- NOTE | 2024-11-16 15:33 | DVHPN2 ---
Subjective admitted for nephrolisthiasis with R sided flank pain Reviewed: Care Plan Changes from previous H/P or p: No Changes Objective Vitals Vital Signs Date Time Temp Pulse Resp B/P (MAP) Pulse Ox O2 Delivery O2 Flow Rate FiO2 11/16/24 12:30 99.1 101 19 108/81 (90) 93 99.1 11/16/24 10:00 Mask 6.0 11/16/24 10:00 50 Intake/Output Intake and Output 11/16/24 07:00 Intake Total 1500 ml Balance 1500 ml Intake Oral 400 ml IV Total 1100 ml # Voids 2 Exam GEN: Alert and oriented CV: RRR Lung: CTAB abd: R CVA tenderness, R flank tender. ext: no edema Medications Current Medications Medications Dose Ordered Sig/Meliza Route Start Time Stop Time Status Last Admin Dose Admin Acetaminophen/ Hydrocodone Bitart 1 tab Q4HP PRN PO 11/15/24 19:45 Ondansetron HCl 4 mg Q4HP PRN IV 11/15/24 19:45 11/16/24 01:42 4 MG Acetaminophen 650 mg Q6HP PRN PO 11/15/24 19:45 Morphine Sulfate 2 mg Q6HPRN PRN IV 11/15/24 19:45 11/16/24 10:09 2 MG Albuterol 2.5 mg Q6HPRN PRN NEB 11/15/24 21:30 Ceftriaxone Sodium/Dextrose 50 ml @ 50 mls/hr DAILY IV 11/17/24 10:00 UNV Laboratory Results Laboratory Tests 11/16/24 06:54 Chemistry Test 11/15/24 21:32 11/16/24 06:54 Albumin 4.5 g/dL (3.2-4.8) Calcium Level 10.5 mg/dL (8.7-10.4) H 10.5 mg/dL (8.7-10.4) H Total Protein 7.1 g/dL (5.7-8.2) Coagulation Test 11/15/24 21:32 D-Dimer, Quantitative 2.45 mg/L FEU (0.0-0.49) H LFT Test 11/15/24 21:32 Alanine Aminotransferase (ALT) 11 U/L (7-40) Alkaline Phosphatase 151 U/L (46-116) H Aspartate Amino Transferase (AST) 18 U/L (13-40) Total Bilirubin 3.2 mg/dL (0.2-1.0) H Urinalysis Test 11/16/24 03:10 Urine Color Light-orange (Yellow) Urine Clarity Turbid (Clear) H Urine pH 5.0 (5.0-9.0) Urine Specific [place] 1.013 (1.001-1.035) Urine Protein 1+ (Negative) H Urine Ketones Negative (Negative) Urine Blood 1+ /uL (Negative) H Urine Nitrite Negative (Negative) Urine Bilirubin Negative (Negative) Urine Urobilinogen Normal mg/dL (Negative) Urine Leukocyte Esterase Trace /uL (Negative) Urine RBC 3 /hpf (0 - 3) Urine Microscopic WBC 5 /HPF (0-3) H Urine Squamous Epithelial Cells Few /hpf (<5) Urine Amorphous Crystals Few /hpf (None Seen) Urine Bacteria None seen /hpf (None Seen) Urine Hyaline Casts Few /lpf (0 - 2) Urine Glucose Normal mg/dL (Normal) Labs and/or images reviewed: Labs reviewed by me Assessment/Plan Assessment/Plan 54 yo M with: #Intractable abdominal pain #Nephrolithiasis #SIRS -urology consulted -CLD -Change abx to ceftraixone #Acute hypoxic respiratory failure -CXR mentions atelectasis, no active infection -Pleural effusion also looks present on R lung. -c/w supportive care, f/u repeat CXR in am. #LOBO -supportive care -IVF -follow renal function. Plan discussed with: Patient My Orders Orders - VA NIETO MD Procedure Category Date Status Time Complete Blood Count LAB 11/17/24 Verified 04:00 Comprehensive LAB 11/17/24 Verified Metabolic Panel 04:00 Ceftriaxone 2gm/50ml PHA 11/17/24 Logged D5w (Rocephin 2gm/5 10:00 Date of Service: Nov 16, 2024 Billing Provider: VA NIETO MD Common Visit Codes: [id number] INP/OBS CARE(MOD) VA NIETO MD Nov 16, 2024 15:33
--- NOTE | 2024-11-16 17:06 | DVH ---
SCROTAL ULTRASOUND REASON FOR EXAM: enlarged scrotum. Right inguinal hernia surgery 2 months ago. COMPARISON: None TECHNIQUE: Real-time sector scans and duplex color flow Doppler imaging of the scrotal contents was performed. FINDINGS: The right testicle measures 4.2 x 2.1 x 3.1 cm. The left testicle measures 4.7 x 3.9 x 3.5 cm. No testicular mass is identified. There is ectasia of the left rete testis. There are a few tiny anechoi c cystic structures that appear associated with the tubular ectasia of the left testis, the largest o f which measures 0.9 cm. Flow was seen within the right and left testicle. There is no hyperemia of either testicle. The right epididymis appears enlarged. The left epididymis is not well seen. There are moderate-sized bilateral hydroceles. No varicocele is identified. IMPRESSION: Flow identified within both testes. No evidence of testicular torsion. The right epididymis appears enlarged. The left epididymis is not well seen. Moderate-sized bilateral hydroceles. Ectasia of the left rete testis.
[2024-11-17] VITALS (11 sets, daily range): BP systolic 102–126; BP diastolic 75–91; PULSE 95–116; RESP 16–20; TEMP 97.8–99.5; O2SAT 92–94
[2024-11-17 08:11] LABS: Hematocrit 45.7 % (41.0-53.0); Hemoglobin 16.1 g/dL (13.5-17.5); Mean Corpuscular Hemoglobin 30.3 pg (28.0-32.0); Mean Corpuscular Volume 85.7 fL (80.0-100.0); Nucleated Red Blood Cells % 0.0 %
[2024-11-17 08:20] LABS: Alanine Aminotransferase 15 U/L (7-40); Albumin 3.7 g/dL (3.2-4.8); Anion Gap 9 (5-15); BUN/Creatinine Ratio 16.4 (10.0-20.0); Bilirubin, Total 1.1 mg/dL (0.2-1.0); Calcium 10.2 mg/dL (8.7-10.4); Carbon Dioxide 24 mmol/L (20-31); Glucose 103 mg/dL (74-106); Potassium 4.3 mmol/L (3.5-5.1); Total Protein 6.6 g/dL (5.7-8.2)
[2024-11-17 08:29] LABS: Alkaline Phosphatase 147 U/L (46-116); Blood Urea Nitrogen 25 mg/dL (9-23); Chloride 95 mmol/L (98-107); Sodium 128 mmol/L (136-145)
--- NOTE | 2024-11-17 08:59 | DVH ---
EXAM: XY CHEST TWO VIEWS ROUTINE CLINICAL HISTORY: RESP FAILURE COMPARISON: XY CHEST XRAY 1 VIEW on DOS: 11/15/24 TECHNIQUE: Frontal and lateral view of the chest was obtained FINDINGS: Lines and Tubes: None Lungs: Low lung with right basilar opacity, slightly improved in aeration of the right lower lung com pared to prior exam. Pleura: No effusion. No pneumothorax. Cardiomediastinal contours: Unremarkable Bones: No acute osseous abnormality. IMPRESSION: Low lung with right basilar opacity, slightly improved in aeration of the right lower lung compared t o prior exam.
--- NOTE | 2024-11-17 12:05 | DVHPN2 ---
Subjective still with R flank pain feels SOB relates testicular swelling for at least several weeks. Reviewed: Care Plan Changes from previous H/P or p: No Changes Objective Vitals Vital Signs Date Time Temp Pulse Resp B/P (MAP) Pulse Ox O2 Delivery O2 Flow Rate FiO2 11/17/24 10:00 94 Mask 6.0 11/17/24 10:00 50 11/17/24 09:00 97.8 114 18 106/82 (90) 97.8 Intake/Output Intake and Output 11/17/24 07:00 Intake Total 1561 ml Output Total 100 ml Balance 1461 ml Intake Oral 1411 ml IV Total 150 ml Output Urine Total 100 ml # Voids 6 Exam GEN: Alert and oriented CV: RRR Lung: CTAB abd: R CVA tenderness, R flank tender. ext: no edema Medications Current Medications Medications Dose Ordered Sig/Meliza Route Start Time Stop Time Status Last Admin Dose Admin Acetaminophen/ Hydrocodone Bitart 1 tab Q4HP PRN PO 11/15/24 19:45 Ondansetron HCl 4 mg Q4HP PRN IV 11/15/24 19:45 11/16/24 01:42 4 MG Acetaminophen 650 mg Q6HP PRN PO 11/15/24 19:45 Morphine Sulfate 2 mg Q6HPRN PRN IV 11/15/24 19:45 11/16/24 16:58 2 MG Albuterol 2.5 mg Q6HPRN PRN NEB 11/15/24 21:30 Ceftriaxone Sodium/Dextrose 50 ml @ 50 mls/hr DAILY IV 11/17/24 10:00 11/17/24 08:49 50 MLS/HR Calcium Carbonate 500 mg BID PO 11/17/24 22:00 UNV Laboratory Results Laboratory Tests 11/17/24 07:04 Chemistry Test 11/17/24 07:04 Albumin 3.7 g/dL (3.2-4.8) Calcium Level 10.2 mg/dL (8.7-10.4) Total Protein 6.6 g/dL (5.7-8.2) LFT Test 11/17/24 07:04 Alanine Aminotransferase (ALT) 15 U/L (7-40) Alkaline Phosphatase 147 U/L (46-116) H Aspartate Amino Transferase (AST) 21 U/L (13-40) Total Bilirubin 1.1 mg/dL (0.2-1.0) H Urinalysis Test 11/16/24 03:10 Urine Color Light-orange (Yellow) Urine Clarity Turbid (Clear) H Urine pH 5.0 (5.0-9.0) Urine Specific [place] 1.013 (1.001-1.035) Urine Protein 1+ (Negative) H Urine Ketones Negative (Negative) Urine Blood 1+ /uL (Negative) H Urine Nitrite Negative (Negative) Urine Bilirubin Negative (Negative) Urine Urobilinogen Normal mg/dL (Negative) Urine Leukocyte Esterase Trace /uL (Negative) Urine RBC 3 /hpf (0 - 3) Urine Microscopic WBC 5 /HPF (0-3) H Urine Squamous Epithelial Cells Few /hpf (<5) Urine Amorphous Crystals Few /hpf (None Seen) Urine Bacteria None seen /hpf (None Seen) Urine Hyaline Casts Few /lpf (0 - 2) Urine Glucose Normal mg/dL (Normal) Microbiology Microbiology Date/Time Source Procedure Growth Status 11/16/24 03:10 Voided Urine Urine Culture - Preliminary Resulted 11/15/24 17:15 Blood Blood Culture - Preliminary NO GROWTH AFTER 24 HOURS OF INCUBATION. Resulted Assessment/Plan Assessment/Plan 54 yo M with: #Intractable abdominal pain #Nephrolithiasis #SIRS -urology consulted -Change abx to ceftraixone #Acute hypoxic respiratory failure -R sided infiltrate on repeat CXR -c/w ceftraixone, add doxy for atypical coverage #Hx of Ringuinal hernia repair-relates it was ~3 months ago. -CT showing Small to moderate R inguinal hernia containing fat with moderate adjacent stranding. I have a page out to his surgeon #Testicular swelling/pain - US showing no torsion. hydroceles present -page out to his surgeon and to urology. #LOBO -supportive care -IVF -follow renal function. Plan discussed with: Patient My Orders Orders - VA NIETO MD Procedure Category Date Status Time Ceftriaxone 2gm/50ml PHA 11/17/24 In Process D5w (Rocephin 2gm/5 10:00 Chest Two Views XY 11/17/24 Resulted Routine 04:00 Testicular Ultrasound US 11/16/24 Resulted 15:58 Calcium Carbonate PHA 11/17/24 Logged (Tums) 22:00 Regular Diet DIET 11/17/24 Transmitted Lunch * Surgical Consult CONS 11/17/24 Transmitted Date of Service: Nov 17, 2024 Billing Provider: VA NIETO MD Common Visit Codes: [id number] INP/OBS CARE(MOD) VA NIETO MD Nov 17, 2024 12:05
--- NOTE | 2024-11-17 14:21 | DVHINCON2 ---
Date of service: Nov 17, 2024 Referring Physician Hospitalist Reason for Consultation Right hydronephrosis, moderate History of Present Illness 48 y/o M is BIBA for 4x day history of nonradiating, right sided abdominal pain, with associated nausea and vomiting. He was admitted on 11/15/24. I was notified for consultation just now. Patient denies on having any bloody or bilious vomitus, diarrhea, urinary symptoms, fever, chills, or further associated symptoms. Significant history of LOBO, kidney stones, sepsis secondary to UTI, and right inguinal hernia repair in August 16, 2024. Chief Complaint: Abdominal Pain Primary Care Provider: UNKNOWN Reviewed Notes: Nurses Notes, Medications, Allergies Allergies: Coded Allergies: NO KNOWN ALLERGIES (Unverified , 08/20/16) Home Meds Active Scripts Cephalexin Monohydrate (Cephalexin) 500 Mg Tab, 500 MG PO TID for 7 Days, #21 TAB Prov:CAR ZHAO RESIDENT 11/09/23 Information Source: Patient, Emergency Med Personnel Mode of Arrival: EMS Severity: Moderate Timing: Days Duration: Since onset Prehospital treatment: None Past Medical History Kidney Stones, UTI'S Past Medical History (Other): Sepsis LOBO Past Surgical History Hernia Repair (right inguinal) Family History: Patient reports no known family medical history. Allergies: Coded Allergies: NO KNOWN ALLERGIES (Unverified , 08/20/16) Home Meds Active Scripts Cephalexin Monohydrate (Cephalexin) 500 Mg Tab, 500 MG PO TID for 7 Days, #21 TAB Prov:CAR ZHAO RESIDENT 11/09/23 Current Medications Current Medications Medications (Trade) Dose Ordered Sig/Meliza Route PRN Reason Start Time Stop Time Status Last Admin Ceftriaxone Sodium/Dextrose 50 ml @ 50 mls/hr DAILY IV 11/17/24 10:00 11/17/24 08:49 Calcium Carbonate (Tums) 500 mg BID PO 11/17/24 22:00 Review of Systems All Other Systems: Reviewed and Negative (Comprehensive systems review obtained and negative except for what is stated in the HPI.) Vital Signs Vital Signs Date Time Temp Pulse Resp B/P (MAP) Pulse Ox O2 Delivery O2 Flow Rate FiO2 11/17/24 12:52 98.2 95 18 116/91 (99) 94 98.2 11/17/24 10:00 Mask 6.0 11/17/24 10:00 50 Physical Exam General Appearance: Moderate Distress HEENT: Normal ENT Inspection, Pharynx Normal, TMs Normal Neck: Full Range of Motion, Non-Tender, Normal, Normal Inspection Respiratory: Chest Non-Tender, Lungs Clear, No Accessory Muscle Use, No Respiratory Distress, Normal Breath Sounds Cardiovascular: No Edema, No JVD, No Murmur, No Gallop, Normal Peripheral Pulses, Regular Rate/Rhythm Breast Exam: Deferred Gastrointestinal: Diffuse Genitalia: Bilateral scrotal swelling, c/w hydroceles Extremities: No calf tenderness, Normal capillary refill, Normal inspection, Normal range of motion, Non-tender, No pedal edema Musculoskeletal : Apperance: Normal Neurologic: Alert, college teacher II-XII nml as Tested, No Motor Deficits, Normal Affect, Normal Mood, No Sensory Deficits Cerebellar Function: NOT DONE Reflexes: NOT DONE Skin: Dry, Normal Color, Warm Peripheral Pulses: 3+ Radial (R), 3+ Radial (L) Lymphatic: No Adenopathy Labs/Diagnostic Data Labs Test 11/17/24 07:04 11/16/24 03:10 11/15/24 23:31 11/15/24 21:32 Range/Units White Blood Count 14.8 H 4.4-10.8 10^3/uL Red Blood Count 5.33 4.5-5.90 10^6/uL Hemoglobin 16.1 13.5-17.5 g/dL Hematocrit 45.7 41.0-53.0 % Mean Corpuscular Volume 85.7 80.0-100.0 fL Mean Corpuscular Hemoglobin 30.3 28.0-32.0 pg Mean Corpuscular Hemoglobin Concent 35.3 32.0-36.0 g/dL Red Cell Distribution Width 14.7 H 11.8-14.3 % Platelet Count 208 140-450 10^3/uL Mean Platelet Volume 8.6 6.9-10.8 fL Neutrophils (%) (Auto) 83.0 H 37.0-80.0 % Lymphocytes (%) (Auto) 3.3 L 10.0-50.0 % Monocytes (%) (Auto) 13.0 H 0.0-12.0 % Eosinophils (%) (Auto) 0.5 0.0-7.0 % Basophils (%) (Auto) 0.2 0.0-2.0 % Neutrophils # (Auto) 12.3 H 1.6-8.6 10 ^3/uL Lymphocytes # (Auto) 0.5 0.4-5.4 10 ^3/uL Monocytes # (Auto) 1.9 H 0-1.3 10 ^3/uL Eosinophils # (Auto) 0.1 0-0.8 10 ^3/uL Basophils # (Auto) 0 0-0.2 10 ^3/uL Nucleated Red Blood Cells 0.0 % Sodium Level 128 L 136-145 mmol/L Potassium Level 4.3 3.5-5.1 mmol/L Chloride Level 95 L 98-107 mmol/L Carbon Dioxide Level 24 20-31 mmol/L Anion Gap 9 5-15 Blood Urea Nitrogen 25 H 9-23 mg/dL Creatinine 1.52 H 0.700-1.30 mg/dL Glomerular Filtration Rate Calc 53 >90 mL/min BUN/Creatinine Ratio 16.4 10.0-20.0 Serum Glucose 103 74-106 mg/dL Calcium Level 10.2 8.7-10.4 mg/dL Total Bilirubin 1.1 H 0.2-1.0 mg/dL Aspartate Amino Transferase (AST) 21 13-40 U/L Alanine Aminotransferase (ALT) 15 7-40 U/L Alkaline Phosphatase 147 H 46-116 U/L Total Protein 6.6 5.7-8.2 g/dL Albumin 3.7 3.2-4.8 g/dL Urine Color Light-orange Yellow Urine Clarity Turbid H Clear Urine pH 5.0 5.0-9.0 Urine Specific [place] 1.013 1.001-1.035 Urine Protein 1+ H Negative Urine Ketones Negative Negative Urine Blood 1+ H Negative /uL Urine Nitrite Negative Negative Urine Bilirubin Negative Negative Urine Urobilinogen Normal Negative mg/dL Urine Leukocyte Esterase Trace Negative /uL Urine RBC 3 0 - 3 /hpf Urine Microscopic WBC 5 H 0-3 /HPF Urine Squamous Epithelial Cells Few <5 /hpf Urine Amorphous Crystals Few None Seen /hpf Urine Bacteria None seen None Seen /hpf Urine Hyaline Casts Few 0 - 2 /lpf Urine Glucose Normal Normal mg/dL Troponin I High Sensitivity < 3 L </=54 ng/L D-Dimer, Quantitative 2.45 H 0.0-0.49 mg/L FEU Lactic Acid Level 1.9 0.4-2.0 mmol/L Test 8/27/25 19:48 Range/Units Urine Opiates Screen Neg NEGATIVE Urine Fentanyl Screen Neg NEGATIVE Urine Barbiturates Screen Neg NEGATIVE Urine Phencyclidine Screen Neg NEGATIVE Urine Amphetamines Screen Pos NEGATIVE Urine Benzodiazepines Screen Neg NEGATIVE Urine Cocaine Screen Neg NEGATIVE Urine Cannabinoids Screen Neg NEGATIVE Microbiology Date/Time Source Procedure Growth Status 11/16/24 03:10 Voided Urine Urine Culture - Preliminary Resulted 11/15/24 17:15 Blood Blood Culture - Preliminary NO GROWTH AFTER 24 HOURS OF INCUBATION. Resulted Assessment Right hydronephrosis Bilateral renal stones 7 mm obstructing right distal ureteral stone Right flank pain Bilateral hydroceles Plan/Recommendation Right PNT ordered but IR not available Right URSLL, possible CVAC renal evacuation and right ureteral stent placement tomorrow 0700 NPO Plan discussed with: Patient, Other JUSTIN MEI MD Nov 17, 2024 14:21
--- NOTE | 2024-11-17 14:36 | DVHINCON2 ---
Date of service: Nov 17, 2024 History of Present Illness 54-year-old male admitted secondary to right-sided abdominal pain. Surgical consultation was requested because the patient had right inguinal hernia repair in late July by Dr. Johnny freire and his scrotum was stored enlarge. However patient denies current pain although he does report occasional discomfort at the surgical site. Past Medical History History of kidney stones and UTI Past Surgical History Right inguinal hernia repair in July. Family History: Patient reports no known family medical history. Family History Noncontributory Social History Smokes marijuana. Also smokes a pack a day. Reports occasional alcohol. Denies any IV drug use. Allergies: Coded Allergies: NO KNOWN ALLERGIES (Unverified , 08/20/16) Home Meds Active Scripts Cephalexin Monohydrate (Cephalexin) 500 Mg Tab, 500 MG PO TID for 7 Days, #21 TAB Prov:CAR ZHAO RESIDENT 11/09/23 Current Medications Current Medications Medications (Trade) Dose Ordered Sig/Meliza Route PRN Reason Start Time Stop Time Status Last Admin Ceftriaxone Sodium/Dextrose 50 ml @ 50 mls/hr DAILY IV 11/17/24 10:00 11/17/24 08:49 Calcium Carbonate (Tums) 500 mg BID PO 11/17/24 22:00 Vital Signs Vital Signs Date Time Temp Pulse Resp B/P (MAP) Pulse Ox O2 Delivery O2 Flow Rate FiO2 11/17/24 12:52 98.2 95 18 116/91 (99) 94 98.2 11/17/24 10:00 Mask 6.0 11/17/24 10:00 50 Physical Exam GEN: Age-appropriate male in no acute distress. Sleeping comfortably. HEENT: Normocephalic atraumatic. Moist mucous membranes. Anicteric sclerae. CV: RRR Respiratory: Coarse breath sounds : Bilateral hydrocele without tenderness to palpation. Soft. 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 Small to moderate right inguinal hernia containing fat with moderate adjacent inflammatory stranding. Moderate right hydronephrosis and hydroureter with a obstructing 7 mm calculus. Labs/Diagnostic Data Labs Test 11/17/24 07:04 11/16/24 03:10 11/15/24 23:31 11/15/24 21:32 Range/Units White Blood Count 14.8 H 4.4-10.8 10^3/uL Red Blood Count 5.33 4.5-5.90 10^6/uL Hemoglobin 16.1 13.5-17.5 g/dL Hematocrit 45.7 41.0-53.0 % Mean Corpuscular Volume 85.7 80.0-100.0 fL Mean Corpuscular Hemoglobin 30.3 28.0-32.0 pg Mean Corpuscular Hemoglobin Concent 35.3 32.0-36.0 g/dL Red Cell Distribution Width 14.7 H 11.8-14.3 % Platelet Count 208 140-450 10^3/uL Mean Platelet Volume 8.6 6.9-10.8 fL Neutrophils (%) (Auto) 83.0 H 37.0-80.0 % Lymphocytes (%) (Auto) 3.3 L 10.0-50.0 % Monocytes (%) (Auto) 13.0 H 0.0-12.0 % Eosinophils (%) (Auto) 0.5 0.0-7.0 % Basophils (%) (Auto) 0.2 0.0-2.0 % Neutrophils # (Auto) 12.3 H 1.6-8.6 10 ^3/uL Lymphocytes # (Auto) 0.5 0.4-5.4 10 ^3/uL Monocytes # (Auto) 1.9 H 0-1.3 10 ^3/uL Eosinophils # (Auto) 0.1 0-0.8 10 ^3/uL Basophils # (Auto) 0 0-0.2 10 ^3/uL Nucleated Red Blood Cells 0.0 % Sodium Level 128 L 136-145 mmol/L Potassium Level 4.3 3.5-5.1 mmol/L Chloride Level 95 L 98-107 mmol/L Carbon Dioxide Level 24 20-31 mmol/L Anion Gap 9 5-15 Blood Urea Nitrogen 25 H 9-23 mg/dL Creatinine 1.52 H 0.700-1.30 mg/dL Glomerular Filtration Rate Calc 53 >90 mL/min BUN/Creatinine Ratio 16.4 10.0-20.0 Serum Glucose 103 74-106 mg/dL Calcium Level 10.2 8.7-10.4 mg/dL Total Bilirubin 1.1 H 0.2-1.0 mg/dL Aspartate Amino Transferase (AST) 21 13-40 U/L Alanine Aminotransferase (ALT) 15 7-40 U/L Alkaline Phosphatase 147 H 46-116 U/L Total Protein 6.6 5.7-8.2 g/dL Albumin 3.7 3.2-4.8 g/dL Urine Color Light-orange Yellow Urine Clarity Turbid H Clear Urine pH 5.0 5.0-9.0 Urine Specific [place] 1.013 1.001-1.035 Urine Protein 1+ H Negative Urine Ketones Negative Negative Urine Blood 1+ H Negative /uL Urine Nitrite Negative Negative Urine Bilirubin Negative Negative Urine Urobilinogen Normal Negative mg/dL Urine Leukocyte Esterase Trace Negative /uL Urine RBC 3 0 - 3 /hpf Urine Microscopic WBC 5 H 0-3 /HPF Urine Squamous Epithelial Cells Few <5 /hpf Urine Amorphous Crystals Few None Seen /hpf Urine Bacteria None seen None Seen /hpf Urine Hyaline Casts Few 0 - 2 /lpf Urine Glucose Normal Normal mg/dL Troponin I High Sensitivity < 3 L </=54 ng/L D-Dimer, Quantitative 2.45 H 0.0-0.49 mg/L FEU Lactic Acid Level 1.9 0.4-2.0 mmol/L Test 11/15/24 19:48 Range/Units Urine Opiates Screen Neg NEGATIVE Urine Fentanyl Screen Neg NEGATIVE Urine Barbiturates Screen Neg NEGATIVE Urine Phencyclidine Screen Neg NEGATIVE Urine Amphetamines Screen Pos NEGATIVE Urine Benzodiazepines Screen Neg NEGATIVE Urine Cocaine Screen Neg NEGATIVE Urine Cannabinoids Screen Neg NEGATIVE Microbiology Date/Time Source Procedure Growth Status 11/16/24 03:10 Voided Urine Urine Culture - Preliminary Resulted 11/15/24 17:15 Blood Blood Culture - Preliminary NO GROWTH AFTER 24 HOURS OF INCUBATION. Resulted Assessment 1. Status post right inguinal hernia repair with small recurrence without signs of obstruction. 2. Bilateral hydrocele Plan/Recommendation No acute indication for surgical repair at this time. Plan discussed with: Patient DANE ORANTES MD Nov 17, 2024 14:36
--- NOTE | 2024-11-17 15:38 | DVH ---
INDICATION: Right ureteral jet TECHNIQUE: Multiple real-time sonographic images of the kidneys and bladder were obtained. COMPARISON: None FINDINGS: The right kidney measures 11.7 cm in length, which is normal in size. There is normal echog enicity of the right kidney. No hydronephrosis. The left kidney measures 10.9 cm in length, which is normal in size. There is normal echogenicity of the left kidney. No hydronephrosis. There are several shadowing stones in both kidneys. There is a 9 mm nonobstructive calculus at the ramirez perior pole of the right kidney. There is a 4 mm nonobstructive calculus at the interpolar region of the left kidney. No large intraluminal masses are seen in the bladder. The bladder volume measures 41 cc. The left ure teral jet is visualized. The right ureteral jet is not visualized despite continuous monitoring for 5 minutes. IMPRESSION: Bilateral nephrolithiasis. No hydronephrosis of either kidney. The right ureteral jet is not visualized despite continuous monitoring for 5 minutes. The left ureteral jet is identified.
[2024-11-17] MEDS: SODIUM CHLORIDE 0.9% 1,000 ML IV SCH (16:27)
[2024-11-17 17:06] LABS: INR 1.07 (0.9-1.15); Prothrombin Time 11.3 sec (9.3-11.8)
[2024-11-17] MEDS: MANNITOL FTV 25% 12.5 GM/50 ML 50 ML IV ONE (17:19)
[2024-11-17] MEDS: CALCIUM CARB 500 MG CHEW TAB PO SCH (21:25)
[2024-11-17] MEDS: DOXYCYCLINE 100 MG TAB/CAP PO SCH (21:25)
[2024-11-18] VITALS (12 sets, daily range): BP systolic 102–115; BP diastolic 68–87; PULSE 17–117; RESP 16–18; TEMP 96.6–98.6; O2SAT 91–96
[2024-11-18] MEDS ORDERED: fentaNYL CITRATE 100 MCG/2 ML VL ONE (06:46)
[2024-11-18] MEDS ORDERED: MIDAZOLAM HCL 2MG/2ML 2ml VIAL (1mg/ml) ONE (06:46)
[2024-11-18] MEDS ORDERED: PROPOFOL 10 MG/ML 20 ML IV ONE ×2 (06:46→07:45)
[2024-11-18] MEDS ORDERED: ROCURONIUM 10MG/ML 10ML VIAL IV ONE (06:46)
[2024-11-18 06:56] LABS: Hematocrit 45.1 % (41.0-53.0); Hemoglobin 15.9 g/dL (13.5-17.5); Mean Corpuscular Hemoglobin 30.1 pg (28.0-32.0); Mean Corpuscular Volume 85.6 fL (80.0-100.0); Nucleated Red Blood Cells % 0.1 %
[2024-11-18 06:57] LABS: Alanine Aminotransferase 15 U/L (7-40); Albumin 3.6 g/dL (3.2-4.8); Anion Gap 8 (5-15); BUN/Creatinine Ratio 18.8 (10.0-20.0); Blood Urea Nitrogen 21 mg/dL (9-23); Calcium 9.8 mg/dL (8.7-10.4); Carbon Dioxide 25 mmol/L (20-31); Glucose 103 mg/dL (74-106); Potassium 4.1 mmol/L (3.5-5.1); Total Protein 6.2 g/dL (5.7-8.2)
[2024-11-18 06:58] LABS: Bilirubin, Total 0.7 mg/dL (0.2-1.0)
[2024-11-18 07:00] LABS: Alkaline Phosphatase 126 U/L (46-116); Chloride 98 mmol/L (98-107); Sodium 131 mmol/L (136-145)
[2024-11-18] MEDS ORDERED: BUPIVACAINE/DEXTROSE MPF 0.75% 2 ML AMP IT ONE (07:15)
[2024-11-18] MEDS ORDERED: MORPHINE SULF PF 5 MG/10 ML VIAL ONE (07:16)
[2024-11-18] MEDS ORDERED: ONDANSETRON HCL 4 MG/2 ML VIAL ONE (07:51)
[2024-11-18] MEDS ORDERED: METOCLOPRAMIDE HCL 5MG/ml INJ 2ml VIAL ONE (07:51)
[2024-11-18] MEDS ORDERED: HYDROmorphone HCL 2 MG/ML VL/or syr IV PRN (08:15)
[2024-11-18] MEDS ORDERED: KETOROLAC TROMETH 30 MG/ML 1ML VIAL IV PRN (08:15)
[2024-11-18] MEDS ORDERED: ONDANSETRON HCL 4 MG/2 ML VIAL IV PRN (08:15)
[2024-11-18] MEDS ORDERED: diphenhdrAMINE HCL 50 MG/1 ML VL IV PRN (08:15)
[2024-11-18] MEDS ORDERED: NALOXONE HCL 0.4 MG/ML VIAL IV PRN (08:15)
--- NOTE | 2024-11-18 08:16 | DVHNC2 ---
Procedure - OPERATIVE REPORT Pre-op. Diagnosis: Ureteral calculus - RIGHT, 7 mm obstructing Flank pain - RIGHT Hydronephrosis - RIGHT, moderate Right ureteric obstruction Hyponatremai Bilateral hydroceles Post-op. Diagnosis: Same as pre-op diagnosis Operation: Cystoscopy with stone manipulation - RIGHT Cystoscopy with ureteral stent placement - RIGHT Cystoscopy with retrograde pyelogram - RIGHT De La Fuente placement Anesthesia: Spinal Indications: Patient was seen for obstructing symptomatic RIGHT ureteral stone and findings of hydronephrosis. US reported no right ureteral jetting c/w complete obstruction of right ureter. The indications, risks, complications, alternatives and benefits of cystoscopy with ureteral stent placement, retrograde pyelogram and possible ureteroscopic laser lithotripsy and stone extraction are discussed with patient. All questions are encouraged and answered. Patient is aware of risks/complications including but not limited to infection, bleeding, persistent pain, possible ureteral injury requiring additional surgical management. Patient is also aware of alternatives of this procedure such as conservative management, lithotripsy or lithotomy. He elected to proceed. Details of Procedure: After obtaining the consent, patient is taken to OR suite and underwent spinal anesthesia due to metabolic derrangement with hyponatremia. Pre-operative antibiotic was given. Timeout was performed and deemed to be correct. With the patient positioned in the lithotomy, the area of the genitalia is prepped and draped in usual sterile fashion. 21 F Cystoscope is used to access the urethra and bladder. No FB, tumors or stones are seen in the bladder. The Right ureteric orifice is cannulated with 6 F open ended catheter and retrograde pyelogram is perfomed. Right distal ureteral tortuosity and mid ureteral stone are noted. Then the Sensor guidewire is advanced through the open-ended to the right renal pelvis under fluoroscopy, and open ended was removed. Debris from the right ureteral orifice are seen. I elected not to proceed with ureteroscopy. At this point , a ureteral stent is placed appropriately over the wire into the Right kidney. Bladder is decompressed and cystoscope is removed in entirety. De La Fuente catheter is placed. Patient is awaken and moved to in stable conation. Specimens: Complications: None Findings: Due to complete right ureteral obstruction resolved with stent placement, URSLL is not performed at this time. Notes: Right 6x30 PL Ureteral stent placed He will need outpatient lithotripsy, possible URSLL and subsequent stent removal. JUSTIN MEI MD Nov 18, 2024 08:16
[2024-11-18] MEDS: IOHEXOL 300 MG/ML 100ML BOTTLE IJ ONE (08:39)
--- NOTE | 2024-11-18 09:02 | DVH ---
XY KUB ABDOMEN SINGLE VIEW, HISTORY: RIGHT STENT PLACEMENT TECHNICAL DATA: 6 intraoperative fluoroscopic spot images were obtained of pelvis. COMPARISON: US KIDNEY on DOS: 11/17/24, CT CT AB PEL WO CON-NO ORAL OR IV on DOS: 11/15/24, CT CT AB PE L WO CON-NO ORAL OR IV on DOS: 11/07/23 FINDINGS/IMPRESSION: C-arm fluoroscopic images were obtained for anatomic localization. The images are of low resolution b ut demonstrate instrumentation over the pelvis and abdomen . Total fluoroscopy time was 43 seconds. D AP 10.2 mGy. Please see the operative report for further details.
--- NOTE | 2024-11-18 18:05 | DVHPN2 ---
Subjective Patient is status post cystoscopy with a ureteric stent placement on the right side. 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 Medications Current Medications Medications Dose Ordered Sig/Meliza Route Start Time Stop Time Status Last Admin Dose Admin Acetaminophen/ Hydrocodone Bitart 1 tab Q4HP PRN PO 11/15/24 19:45 Acetaminophen 650 mg Q6HP PRN PO 11/15/24 19:45 Morphine Sulfate 2 mg Q6HPRN PRN IV 11/15/24 19:45 11/16/24 16:58 2 MG Albuterol 2.5 mg Q6HPRN PRN NEB 11/15/24 21:30 Ceftriaxone Sodium/Dextrose 50 ml @ 50 mls/hr DAILY IV 11/17/24 10:00 11/17/24 08:49 50 MLS/HR Calcium Carbonate 500 mg BID PO 11/17/24 22:00 11/18/24 09:33 500 MG Doxycycline Monohydrate 100 mg Q12HR PO 11/17/24 22:00 11/18/24 09:33 100 MG Sodium Chloride 1,000 ml @ 75 mls/hr [id number] IV 11/17/24 16:15 11/18/24 05:43 75 MLS/HR Diphenhydramine HCl 25 mg Q4HP PRN IV 11/18/24 08:15 Ondansetron HCl 4 mg Q4HP PRN IV 11/18/24 08:15 Ketorolac Tromethamine 30 mg Q6HP PRN IV 11/18/24 08:15 11/23/24 08:14 Laboratory Results Laboratory Tests 11/18/24 06:10 Chemistry Test 11/18/24 06:10 Albumin 3.6 g/dL (3.2-4.8) Calcium Level 9.8 mg/dL (8.7-10.4) Total Protein 6.2 g/dL (5.7-8.2) LFT Test 11/18/24 06:10 Alanine Aminotransferase (ALT) 15 U/L (7-40) Alkaline Phosphatase 126 U/L (46-116) H Aspartate Amino Transferase (AST) 19 U/L (13-40) Total Bilirubin 0.7 mg/dL (0.2-1.0) Urinalysis Test 11/16/24 03:10 Urine Color Light-orange (Yellow) Urine Clarity Turbid (Clear) H Urine pH 5.0 (5.0-9.0) Urine Specific [place] 1.013 (1.001-1.035) Urine Protein 1+ (Negative) H Urine Ketones Negative (Negative) Urine Blood 1+ /uL (Negative) H Urine Nitrite Negative (Negative) Urine Bilirubin Negative (Negative) Urine Urobilinogen Normal mg/dL (Negative) Urine Leukocyte Esterase Trace /uL (Negative) Urine RBC 3 /hpf (0 - 3) Urine Microscopic WBC 5 /HPF (0-3) H Urine Squamous Epithelial Cells Few /hpf (<5) Urine Amorphous Crystals Few /hpf (None Seen) Urine Bacteria None seen /hpf (None Seen) Urine Hyaline Casts Few /lpf (0 - 2) Urine Glucose Normal mg/dL (Normal) Microbiology Microbiology Date/Time Source Procedure Growth Status 11/16/24 03:10 Voided Urine Urine Culture - Final Complete 11/15/24 17:15 Blood Blood Culture - Preliminary NO GROWTH AFTER 72 HOURS OF INCUBATION. Resulted Assessment/Plan Assessment/Plan 54-year-old male with a known history of kidney stones presented to the hospital with a right-sided abdominal pain found to have 1. Right obstructive uropathy 2. Right ureteric obstructing stone with a hydronephrosis status post cystoscopy with stent placement 3. Complicated UTI 4. Recent hernia repair -continue IV antibiotics, pain meds, follow up Urology for discharge plan. Plan discussed with: Patient Date of Service: Nov 18, 2024 Billing Provider: ZOILA BARRAGAN MD Common Visit Codes: [id number] INP/OBS CARE(MOD) ZOILA BARRAGAN MD Nov 18, 2024 18:05
[2024-11-19] VITALS (11 sets, daily range): BP systolic 92–118; BP diastolic 65–82; PULSE 88–112; RESP 16–20; TEMP 97.2–98.6; O2SAT 90–94
--- NOTE | 2024-11-19 17:50 | DVHPN2 ---
Subjective Patient is status post cystoscopy with a ureteric stent placement on the right side. 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 Medications Current Medications Medications Dose Ordered Sig/Meliza Route Start Time Stop Time Status Last Admin Dose Admin Acetaminophen/ Hydrocodone Bitart 1 tab Q4HP PRN PO 11/15/24 19:45 Acetaminophen 650 mg Q6HP PRN PO 11/15/24 19:45 Morphine Sulfate 2 mg Q6HPRN PRN IV 11/15/24 19:45 11/16/24 16:58 2 MG Albuterol 2.5 mg Q6HPRN PRN NEB 11/15/24 21:30 Ceftriaxone Sodium/Dextrose 50 ml @ 50 mls/hr DAILY IV 11/17/24 10:00 11/19/24 10:09 50 MLS/HR Calcium Carbonate 500 mg BID PO 11/17/24 22:00 11/19/24 10:06 500 MG Doxycycline Monohydrate 100 mg Q12HR PO 11/17/24 22:00 11/19/24 10:05 100 MG Sodium Chloride 1,000 ml @ 75 mls/hr [id number] IV 11/17/24 16:15 11/19/24 08:15 75 MLS/HR Diphenhydramine HCl 25 mg Q4HP PRN IV 11/18/24 08:15 Ondansetron HCl 4 mg Q4HP PRN IV 11/18/24 08:15 Ketorolac Tromethamine 30 mg Q6HP PRN IV 11/18/24 08:15 11/23/24 08:14 Laboratory Results Laboratory Tests 11/18/24 06:10 Urinalysis Test 11/16/24 03:10 Urine Color Light-orange (Yellow) Urine Clarity Turbid (Clear) H Urine pH 5.0 (5.0-9.0) Urine Specific [place] 1.013 (1.001-1.035) Urine Protein 1+ (Negative) H Urine Ketones Negative (Negative) Urine Blood 1+ /uL (Negative) H Urine Nitrite Negative (Negative) Urine Bilirubin Negative (Negative) Urine Urobilinogen Normal mg/dL (Negative) Urine Leukocyte Esterase Trace /uL (Negative) Urine RBC 3 /hpf (0 - 3) Urine Microscopic WBC 5 /HPF (0-3) H Urine Squamous Epithelial Cells Few /hpf (<5) Urine Amorphous Crystals Few /hpf (None Seen) Urine Bacteria None seen /hpf (None Seen) Urine Hyaline Casts Few /lpf (0 - 2) Urine Glucose Normal mg/dL (Normal) Microbiology Microbiology Date/Time Source Procedure Growth Status 11/16/24 03:10 Voided Urine Urine Culture - Final Complete 11/15/24 17:15 Blood Blood Culture - Preliminary NO GROWTH AFTER 72 HOURS OF INCUBATION. Resulted Assessment/Plan Assessment/Plan 54-year-old male with a known history of kidney stones presented to the hospital with a right-sided abdominal pain found to have 1. Right obstructive uropathy 2. Right ureteric obstructing stone with a hydronephrosis status post cystoscopy with stent placement 3. Complicated UTI 4. Recent hernia repair -continue IV antibiotics, pain meds, follow up Urology for discharge plan. Plan discussed with: Patient Date of Service: Nov 19, 2024 Billing Provider: ZOILA BARRAGAN MD Common Visit Codes: [id number] INP/OBS CARE(MOD) ZOILA BARRAGAN MD Nov 19, 2024 17:50
[2024-11-20] VITALS (9 sets, daily range): BP systolic 121–136; BP diastolic 87–96; PULSE 83–94; RESP 17–20; TEMP 37; O2SAT 92–95
[2024-11-20] MEDS: HYDROcodone-ACET 5/325MG TAB PO PRN (00:33)
[2024-11-20] MEDS ORDERED: CEPH500T PO (16:30)
[2024-11-20] MEDS ORDERED: HYDR-4902 PO (16:30)
--- NOTE | 2024-11-20 16:33 | DVHDS2 ---
Discharge Summary Date of Admission Nov 15, 2024 at 19:43 Date of Discharge: Nov 20, 2024 Labs/Diagnostic Data: Laboratory Results Test 11/18/24 06:10 11/17/24 16:29 11/16/24 03:10 11/15/24 23:31 White Blood Count 13.4 10^3/uL (4.4-10.8) Red Blood Count 5.27 10^6/uL (4.5-5.90) Hemoglobin 15.9 g/dL (13.5-17.5) Hematocrit 45.1 % (41.0-53.0) Mean Corpuscular Volume 85.6 fL (80.0-100.0) Mean Corpuscular Hemoglobin 30.1 pg (28.0-32.0) Mean Corpuscular Hemoglobin Concent 35.1 g/dL (32.0-36.0) Red Cell Distribution Width 14.5 % (11.8-14.3) Platelet Count 228 10^3/uL (140-450) Mean Platelet Volume 8.1 fL (6.9-10.8) Neutrophils (%) (Auto) 80.8 % (37.0-80.0) Lymphocytes (%) (Auto) 5.7 % (10.0-50.0) Monocytes (%) (Auto) 12.4 % (0.0-12.0) Eosinophils (%) (Auto) 0.7 % (0.0-7.0) Basophils (%) (Auto) 0.4 % (0.0-2.0) Neutrophils # (Auto) 10.8 10 ^3/uL (1.6-8.6) Lymphocytes # (Auto) 0.8 10 ^3/uL (0.4-5.4) Monocytes # (Auto) 1.7 10 ^3/uL (0-1.3) Eosinophils # (Auto) 0.1 10 ^3/uL (0-0.8) Basophils # (Auto) 0.1 10 ^3/uL (0-0.2) Nucleated Red Blood Cells 0.1 % Sodium Level 131 mmol/L (136-145) Potassium Level 4.1 mmol/L (3.5-5.1) Chloride Level 98 mmol/L (98-107) Carbon Dioxide Level 25 mmol/L (20-31) Anion Gap 8 (5-15) Blood Urea Nitrogen 21 mg/dL (9-23) Creatinine 1.12 mg/dL (0.700-1.30) Glomerular Filtration Rate Calc 77 mL/min (>90) BUN/Creatinine Ratio 18.8 (10.0-20.0) Serum Glucose 103 mg/dL (74-106) Calcium Level 9.8 mg/dL (8.7-10.4) Total Bilirubin 0.7 mg/dL (0.2-1.0) Aspartate Amino Transferase (AST) 19 U/L (13-40) Alanine Aminotransferase (ALT) 15 U/L (7-40) Alkaline Phosphatase 126 U/L (46-116) Total Protein 6.2 g/dL (5.7-8.2) Albumin 3.6 g/dL (3.2-4.8) Prothrombin Time 11.3 sec (9.3-11.8) Prothrombin Time INR 1.07 (0.9-1.15) Urine Color Light-orange (Yellow) Urine Clarity Turbid (Clear) Urine pH 5.0 (5.0-9.0) Urine Specific [place] 1.013 (1.001-1.035) Urine Protein 1+ (Negative) Urine Ketones Negative (Negative) Urine Blood 1+ /uL (Negative) Urine Nitrite Negative (Negative) Urine Bilirubin Negative (Negative) Urine Urobilinogen Normal mg/dL (Negative) Urine Leukocyte Esterase Trace /uL (Negative) Urine RBC 3 /hpf (0 - 3) Urine Microscopic WBC 5 /HPF (0-3) Urine Squamous Epithelial Cells Few /hpf (<5) Urine Amorphous Crystals Few /hpf (None Seen) Urine Bacteria None seen /hpf (None Seen) Urine Hyaline Casts Few /lpf (0 - 2) Urine Glucose Normal mg/dL (Normal) Troponin I High Sensitivity < 3 ng/L (</=54) Test 11/15/24 21:32 11/15/24 19:48 D-Dimer, Quantitative 2.45 mg/L FEU (0.0-0.49) Lactic Acid Level 1.9 mmol/L (0.4-2.0) Urine Opiates Screen Neg (NEGATIVE) Urine Fentanyl Screen Neg (NEGATIVE) Urine Barbiturates Screen Neg (NEGATIVE) Urine Phencyclidine Screen Neg (NEGATIVE) Urine Amphetamines Screen Pos (NEGATIVE) Urine Benzodiazepines Screen Neg (NEGATIVE) Urine Cocaine Screen Neg (NEGATIVE) Urine Cannabinoids Screen Neg (NEGATIVE) Other Laboratory Tests 11/18/24 06:10 Brief Hx & Hospital Course: 54-year-old male with a known history of kidney stones presented to the hospital with a right-sided abdominal pain found to have right obstructive uropathy with a right ureteric the obstructive stone. Patient underwent cystoscopy with a stent placement. Patient's has a UTI which was treated with the IV antibiotics which will be switched to p.o. antibiotics. Outpatient follow up with the Urology for ESWL. Condition at Discharge: Stable Final Diagnosis/Problems List 54-year-old male with a known history of kidney stones presented to the hospital with a right-sided abdominal pain found to have 1. Right obstructive uropathy 2. Right ureteric obstructing stone with a hydronephrosis status post cystoscopy with stent placement 3. Complicated UTI 4. Recent hernia repair Discharge Disposition: Home SNF Discharge Will this Physician continue t: No Discharge Instruct/Medications Diet: Cardiac 2g Na,low cholest Activity: See Comment Activity comment: No driving, no signing legal documents, no playing on heavy machinery while on narcotics. Follow Up/Referral: Follow up with the PCP in one week Follow up with the Urology Dr. Gene Lambert in one week Medications: Keflex, Ryegate as prescribed. New Medications: Hydrocodone-Acetaminophen (Hydrocodone Bitartrate/AC 5-325 mg) 1 Tab Tab 1 TAB PO Q8HP PRN, #10 TAB Continued Medications: Cephalexin Monohydrate (Cephalexin) 500 Mg Tab 500 MG PO TID for 7 Days, #21 TAB (This prescription has been renewed) Scheduled Cephalexin Monohydrate (Cephalexin), 500 MG PO TID Scheduled PRN Hydrocodone-Acetaminophen (Hydrocodone Bitartrate/AC 5-325 mg), 1 TAB PO Q8HP PRN Discharge Statement: "Patient was advised to return to the ER or call 911 if any headaches, dizziness, shortness of breath, chest pain, abdominal pain, bleeding, fevers, or worsening of medical condition. Patient was counseled about treatment plan, medications, possible side effects, patientverbalized understanding. All questions were answered to the best of my ability. This discharge took greater then 30 minutes in planning, reviewing documentation, counseling the patient, and discussing with other team members." ASSESSMENT ASSESSMENT Assessment 54-year-old male with a known history of kidney stones presented to the hospital with a right-sided abdominal pain found to have 1. Right obstructive uropathy 2. Right ureteric obstructing stone with a hydronephrosis status post cystoscopy with stent placement 3. Complicated UTI 4. Recent hernia repair Date of Service: Nov 20, 2024 Billing Provider: ZOILA BARRAGAN MD Common Visit Codes: [id number] DISCH DAY >30min ZOILA BARRAGAN MD Nov 20, 2024 16:33
== END 2024-11-20 18:32 | disposition home or self-care (01) | DRG 720 ==
LOC: ER 12:21 → EDBD 12:21 → OVERFLOW 19:43 → WEST WING 22:40 → TELE-WESTW 23:24
PROVIDERS: ADMIT Internal Medicine; ATTEND Internal Medicine
PROC: BT1D1ZZ Fluoroscopy of Right Kidney, Ureter and Bladder using Low Osmolar Contrast (ICD-10-PCS; 2024-11-18)
PROC: 0T768DZ Dilation of Right Ureter with Intraluminal Device, Via Natural or Artificial Opening Endoscopic (ICD-10-PCS; principal; 2024-11-18 07:21)
DX: A41.9 Sepsis, unspecified organism (principal); N17.0 Acute kidney failure with tubular necrosis; J96.01 Acute respiratory failure with hypoxia; J90 Pleural effusion, not elsewhere classified; N13.6 Pyonephrosis; R65.10 Systemic inflammatory response syndrome (SIRS) of non-infectious origin without acute organ dysfunction; N43.3 Hydrocele, unspecified; K52.9 Noninfective gastroenteritis and colitis, unspecified; J98.11 Atelectasis; F17.210 Nicotine dependence, cigarettes, uncomplicated; Z87.442 Personal history of urinary calculi
CPT/HCPCS: 36415; 71045; 71046; 74018; 74176; 76000; 76775; 76870; 78582; 80048; 80053; 80307; 81001; 83605; 84484; 85025; 85379; 85610; 86850; 86900; 86901; 87040; 87086; 93005; 96365; 96375; 99291; 99292; G0378; J1885; J2250; J2405; J2543; J2704; J3490